=== PATIENT | female | born 1930 | race Caucasian/White ===

== ENCOUNTER 2019-07-03 14:07 | Inpatient (IN) ==
--- OUTSIDE RECORDS SUMMARY | 2019-07-03 14:11 | External Medical Summary | Continuity of Care Document ---
:1930 Author Name Elicia Harris Address Unavailable Unavailable , Care Team Providers Name Role Phone Zelda Harris Unavailable [email or web address], [email or web address] Unavailable Unavailable Problems Active medical history not documented Allergies and Adverse Reactions Allergy history not documented Medications Medications not documented Procedures Procedures not documented Immunizations Immunizations not documented Plan of Treatment Planned Observations Planned Goals not documented Results No Known Results Results not documented
[2019-07-03] MEDS ORDERED: DIPHTHERIA/TETANUS/PERTUSSIS 0.5 ML SYR/VIAL IM ONE (14:48)
--- NOTE | 2019-07-03 15:29 | XRay Report ---
XR hip RT 2V w pelvis CLINICAL HISTORY: fall, pain trauma. Pain. COMPARISON: None. DISCUSSION: The bones and joint spaces appear intact. There is no evidence of fracture, dislocation o r bony disease. Generalized degenerative change of the hips bilaterally. IMPRESSION: No acute process. Degenerative change. The above report was generated using voice recognition software. It may contain grammatical, syntax or spelling errors. Electronically signed by: Curtis Ruiz M.D. 07/03/2019 3:28 PM
[2019-07-03 15:35] LABS: Hematocrit (blood only) 38.5 % (37-47); Hemoglobin 12.4 g/dL (12.0-16.0); Mean Corpuscular Hemoglobin 28.5 pg (25-34); Mean Corpuscular Hgb Conc 32.2 g/dL (32-36); Mean Corpuscular Volume 88.5 fL (80-100); Platelet Count 334 K/uL (130-400); RDW Coefficient of Variation 15.1 % (11.5-14.5); RDW Standard Deviation 48.9 fL (36.4-46.3); Red Blood Count 4.35 M/uL (4.2-5.4); White Blood Count 27.06 K/uL (4.8-10.8)
--- NOTE | 2019-07-03 15:37 | Emergency Department Note ---
Entered by Stephanie Figueroa acting as a scribe for History of Present Illness General Chief complaint: Fall Time Seen by Provider: 07/03/19 14:41 Source: patient and family () Mode of arrival: EMS Limitations: no limitations History of Present Illness Provider complaint: Fall Onset (ago): hour(s) (around 1200 today) Location: head and hip (right) Pain Consistency: + other (episode) Maximum Pain Intensity: 8 Quality: + other (fall) Associated symptoms: + other (Additional symptoms: right hip pain, left calf skin tear. Denies: dizziness); no syncope The patient is an 88 year old female with a history of a knee replacement, cardiac catheterization, hysterectomy, anemia of chronic disease, hypertension, dyslipidemia, type II diabetes, GERD, CAD, migraines, and renal cyst who presents to the Emergency Room with complaints of an episode of a fall occurring around 1200 today. The patient reports that she was moving a milk jug to the fridge in her kitchen when she stepped across herself and lost her balance. She states that she thinks her shoe got caught and denies feeling dizzy at this time. She notes that she hit the right side of her head during her fall and fell onto her right side. She reports no syncope. The patient currently complains of right hip pain, as well as a skin tear to the back of her left calf. Her notes that the patient was wearing pants during the fall. The patient states that she was able to stand up after the fall but that doing so caused pain. She mentions that she took Tylenol for her pain prior to arrival. Prior to this fall, the patient explains that she had no symptoms and complaints. She notes th at she does not take any blood thinners. Home Medications Home Medications Medication Instructions Recorded Confirmed Type isosorbide dinitrate 10 mg PO BID 08/15/18 07/03/19 History metoprolol tartrate 25 mg PO BID 08/15/18 07/03/19 History nitroglycerin 0.4 mg SUBLINGUAL DIRECTED PRN 08/15/18 07/03/19 History simvastatin 20 mg PO HS 08/15/18 07/03/19 History zolpidem 5 mg PO HS PRN 08/15/18 07/03/19 History amlodipine 2.5 mg PO DAILY 07/03/19 07/03/19 History aspirin 81 mg PO MOWEFR@2100 07/03/19 07/03/19 History cholecalciferol (vitamin D3) 400 unit PO DAILY 07/03/19 07/03/19 History [Vitamin D3] cyanocobalamin (vitamin B-12) 500 mcg SUBLINGUAL DAILY 07/03/19 07/03/19 History valacyclovir [Valtrex] 1,000 mg PO UD 07/03/19 07/03/19 History vitamins A,C,[id number] 1 tab PO BID 07/03/19 07/03/19 History [PreserVision AREDS] Allergies Allergy/AdvReac Type Severity Reaction Status Date / Time sulfamethoxazole Allergy Intermediate Rash Verified 08/15/18 21:51 [From Bactrim] trimethoprim [From Bactrim] Allergy Intermediate Rash Verified 08/15/18 21:51 losartan Allergy Mild Fatigue Verified 08/15/18 21:51 erythromycin base AdvReac Mild NAUSEA Verified 08/15/18 21:51 Past Med/Surg History Medical History History of hysterectomy (Resolved) Anemia of chronic disease (Chronic) HTN (hypertension) (Chronic) Dyslipidemia (Chronic) Diabetes mellitus, type II (Chronic) CKD (chronic kidney disease), stage III (Chronic) GERD (gastroesophageal reflux disease) (Chronic) Pernicious anemia (Chronic) CAD (coronary artery disease) (Chronic) Migraine (Chronic) Knee joint replacement status (Resolved) Renal cyst (Chronic) Wears hearing aid (Chronic) Hypertension (Chronic) Fall (Inactive) Multiple rib fractures (Inactive) Surgical History Hx of tonsillectomy (Resolved) S/P cardiac cath (Chronic) History of knee replacement (Chronic) Family History Other Coronary heart disease Social History Preferred Language: [place] Communication Ability: Effective Hearing Ability: Use of Hearing Aid Care Transition Mgr Required: No Beliefs That Will Affect Care: None marital status: Current Living Situation: Spouse current occupational status: retired Other Information That Helps Us Care for You: No Feels Safe at Home: Yes Safety Concerns: Feels Safe At This Time Smoking Status: Never smoker Second Hand Exposure: No ; Hx Alcohol Use: Yes Alcohol type: wine Alcohol Intake Frequency: Rarely Hx Substance Use: No Review of Systems See HPI for pertinent positives & negatives. and A total of 10 systems reviewed and were otherwise negative Physical Exam Vital Signs Vital Signs - 24 hr 07/03/19 14:14 07/03/19 14:17 07/03/19 14:18 Temperature 36.5 C Temperature Source Oral Sepsis Recent Fever Within 48 Hours No Sepsis New/Unexplained Change in Mental Status No Sepsis Action Taken by Nursing No Action Required Pulse Rate 72 72 76 Pulse Rate [Left Finger] Pulse Rate from SpO2 Sensor 72 72 Respiratory Rate 14 20 17 Respiratory Effort / Characteristics Non-Labored Respiratory Depth Normal Respiratory Pattern Regular Blood Pressure 146/74 H 146/74 H Blood Pressure [Right Arm] Blood Pressure Mean 98 98 Blood Pressure Mean [Right Arm] Blood Pressure Position [Right Arm] Pulse Oximetry 94 95 95 Oxygen Delivery Method Room Air 07/03/19 14:30 07/03/19 15:00 07/03/19 15:30 Temperature Temperature Source Sepsis Recent Fever Within 48 Hours Sepsis New/Unexplained Change in Mental Status Sepsis Action Taken by Nursing Pulse Rate 70 76 78 Pulse Rate [Left Finger] Pulse Rate from SpO2 Sensor 71 76 78 Respiratory Rate 18 19 17 Respiratory Effort / Characteristics Respiratory Depth Respiratory Pattern Blood Pressure 128/68 Blood Pressure [Right Arm] Blood Pressure Mean 88 Blood Pressure Mean [Right Arm] Blood Pressure Position [Right Arm] Pulse Oximetry 93 92 94 Oxygen Delivery Method 07/03/19 16:14 07/03/19 16:15 07/03/19 16:17 Temperature Temperature Source Sepsis Recent Fever Within 48 Hours Sepsis New/Unexplained Change in Mental Status Sepsis Action Taken by Nursing Pulse Rate 85 82 Pulse Rate [Left Finger] 82 Pulse Rate from SpO2 Sensor 85 82 Respiratory Rate 13 23 Respiratory Effort / Characteristics Respiratory Depth Respiratory Pattern Blood Pressure 151/82 H Blood Pressure [Right Arm] 151/82 H Blood Pressure Mean 105 Blood Pressure Mean [Right Arm] 105 Blood Pressure Position [Right Arm] Lying Pulse Oximetry 93 92 93 Oxygen Delivery Method Room Air 07/03/19 16:30 07/03/19 17:00 Temperature Temperature Source Sepsis Recent Fever Within 48 Hours Sepsis New/Unexplained Change in Mental Status Sepsis Action Taken by Nursing Pulse Rate 83 86 Pulse Rate [Left Finger] Pulse Rate from SpO2 Sensor 83 86 Respiratory Rate 19 15 Respiratory Effort / Characteristics Respiratory Depth Respiratory Pattern Blood Pressure Blood Pressure [Right Arm] Blood Pressure Mean Blood Pressure Mean [Right Arm] Blood Pressure Position [Right Arm] Pulse Oximetry 93 94 Oxygen Delivery Method GENERAL: Patient is in no acute distress. HEENT: 2 cm hematoma to the right posterior scalp. No laceration requiring repair. Mucous membranes are moist. No facial contusion. NECK: No stridor, no adenopathy, no meningismus, trachea is midline. Nontender cervical spine. LUNGS: Clear to auscultation bilaterally, no wheeze, no rhonchi, breath sounds equal. HEART: Without murmurs gallops or rubs, regular rate and rhythm. ABDOMEN: Soft, nontender, bowel sounds positive, no hernias, no peritonitis. EXTREMITIES: 4 cm skin tear to the left posterior calf, no bleeding, no need for suturing. No bony tenderness in this area. Pain to move the right hip. No right lower extremity deformity. Strong right distal pedal pulses. Palpation around the right hip produces no pain. NEUROLOGIC: Oriented x 3, no acute motor or sensory deficits, no focal weakness. SKIN: No rash, no jaundice, no diaphoresis. Course 1441: The patient was evaluated in room D2B, and a complete history and physical examination were performed. 1645: On reevaluation, the patient is resting. I discussed the results and findings with her and her family. The patient verbalized agreement of the treatment plan. 1647: I reviewed the patient's case with Patricia Angel PA-C. Dr. Shepherd will evaluate the patient for further management and care. Consultations Consultation #1: I reviewed the patient's case with Patricia Angel PA-C. Dr. Shepherd will evaluate the patient for further management and care. Time: 16:47 Administered Medications Acetaminophen (Tylenol) 1,000 mg PO Q8H [facility] Stop: 08/02/19 18:59 Last Admin: 07/03/19 19:15 Dose: 1,000 mg Documented by: [id number] Aspirin (Ecotrin Ectab) 81 mg PO MOWEFR@2100 [facility] Stop: 08/02/19 20:59 Last Admin: 07/03/19 20:17 Dose: 81 mg Documented by: [id number] Isosorbide Dinitrate (Isordil) 10 mg PO BID@0900,1700 [facility] Stop: 08/02/19 18:59 Last Admin: 07/03/19 20:17 Dose: 10 mg Documented by: [id number] Metoprolol Tartrate (Lopressor) 25 mg PO BID [facility] Stop: 08/02/19 20:59 Last Admin: 07/03/19 20:18 Dose: 25 mg Documented by: [id number] Simvastatin (Zocor) 20 mg PO HS [facility] Stop: 08/02/19 20:59 Last Admin: 07/03/19 20:18 Dose: 20 mg Documented by: [id number] Zolpidem Tartrate (Ambien) 5 mg PO HS PRN PRN Reason: Sleep Stop: 08/02/19 17:52 Last Admin: 07/03/19 22:17 Dose: 5 mg Documented by: [id number] Discontinued Medications Diphtheria/Pertussis/Tetanus Vacc (Adacel) 0.5 ml IM .ONCE ONE Stop: 07/03/19 14:49 Last Admin: 07/03/19 15:30 Dose: 0.5 ml Documented by: [id number] Sodium Chloride (Nss 1000ml) 500 mls @ 999 mls/hr IV .Q31M ONE Stop: 07/03/19 16:32 Last Infusion: 07/03/19 16:52 Dose: 0 mls/hr Documented by: [id number] Admin: 07/03/19 16:19 Dose: 999 mls/hr Documented by: [id number] Ketorolac Tromethamine (Toradol) 15 mg IV NOW STA Stop: 07/03/19 15:45 Last Admin: 07/03/19 15:49 Dose: 15 mg Documented by: [id number] Medical Decision Making Differential Diagnosis Differential diagnosis includes: intracranial bleeding, skull fracture, pelvic fracture, hip fracture, hip strain, hip contusion, hip dislocation. Medical Records Attestation: I reviewed the patient's medical records. Home Medications Current Medication List: was personally reviewed by me Laboratory Data Attestation: I reviewed the patient's lab results. Result diagrams: 07/03/19 15:17 07/03/19 15:17 Lab Results 07/03/19 07/03/19 07/03/19 Range/Units 15:17 15:17 17:03 WBC 27.06 H (4.8-10.8) K/uL RBC 4.35 (4.2-5.4) M/uL Hgb 12.4 (12.0-16.0) g/dL Hct 38.5 (37-47) % MCV 88.5 (80-100) fL MCH 28.5 (25-34) pg MCHC 32.2 (32-36) g/dL RDW Std Deviation 48.9 H (36.4-46.3) fL RDW Coeff of [place] 15.1 H (11.5-14.5) % Plt Count 334 (130-400) K/uL MPV 11.0 H (7.4-10.4) fL Sodium 137 (136-145) mmol/L Potassium 3.9 (3.5-5.1) mmol/L Chloride 106 (98-107) mmol/L Carbon Dioxide 24 (21-32) mmol/L Anion Gap 8.0 (3-11) BUN 19 H (7-18) mg/dl Creatinine 1.31 H (0.6-1.2) mg/dl Est Cr Clr Drug Dosing 23.9 ml/min Est GFR ( Amer) 42.0 Est GFR (Non-Af Amer) 36.3 BUN/Creatinine Ratio 14.7 (10-20) Glucose 110 H (70-99) mg/dl Calcium 9.5 (8.5-10.1) mg/dl Urine Color Yellow Urine Appearance Clear (Clear) Urine pH 7.0 (4.5-7.5) Ur Specific [place] 1.007 (1.000-1.030) Urine Protein Negative (Negative) Urine Glucose (UA) Negative (Negative) Urine Ketones Negative (Negative) Urine Blood Negative (Negative) Urine Nitrite Negative (Negative) Urine Bilirubin Negative (Negative) Urine Urobilinogen Negative (Negative) Ur Leukocyte Esterase Negative (Negative) Imaging Data Radiologist's Impression: Radiology results as stated below per my review and the radiologist's interpretation: XR hip RT 2V w pelvis CLINICAL HISTORY: fall, pain trauma. Pain. COMPARISON: None. DISCUSSION: The bones and joint spaces appear intact. There is no evidence of fracture, dislocation or bony disease. Generalized degenerative change of the hips bilaterally. IMPRESSION: No acute process. Degenerative change. The above report was generated using voice recognition software. It may contain grammatical, syntax or spelling errors. Electronically signed by: Curtis Ruiz M.D. 07/03/2019 3:[address] head/brain wo con CLINICAL HISTORY: Head pain status post trauma COMPARISON STUDY: No previous studies for comparison. TECHNIQUE: Axial CT of the brain is performed from the vertex to the skull base. IV contrast was not administered for this examination. A dose lowering technique was utilized adhering to the principles of ALARA. CT DOSE: 788.63 mGycm FINDINGS: No intra or extra-axial mass lesions are visualized. There is no CT evidence of acute cortical infarction. There is no evidence of midline shift. There is no acute hemorrhage. No calvarial fractures are visualized. There are extensive white matter hypodensities likely on a small vessel basis. 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 There is no evidence of pathologic ventricular dilatation. There is no evidence of acute sinusitis. There are multiple tentorial and falcine calcifications. IMPRESSION: No acute intracranial findings Electronically signed by: Deon Durham M.D. 07/03/2019 4:[address] hip RT wo con CT DOSE: CLINICAL HISTORY: Right hip pain status post trauma TECHNIQUE: Helical images were acquired in the transverse plane. Sagittal and coronal reformatted images were acquired. A dose lowering technique was utilized adhering to the principles of ALARA. COMPARISON STUDY: X-ray study dated 07/03/2019 FINDINGS: There is extensive sigmoid diverticulosis. There are extensive vascular calcifications. There is acute fracture of the right superior pubic ramus, extending to the symphysis pubis. Right symphysis pubis. There is no evidence of symphysis diastases. There is no evidence of SI joint diastases. No acute proximal femoral fractures are visualized. There are moderate osteoarthritic changes. IMPRESSION: 1. Acute fracture of the right superior pubic ramus with extension to the symphysis pubis 2. No evidence of proximal femoral fracture. No evidence of dislocation 3. 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 07/03/2019 4:19 PM Blood Pressure Blood Pressure Findings: Elevated blood pressure Blood Pressure Disposition: further management by hospitalist Head Trauma GCS Score: 15 MDM Narrative There is a significant leukocytosis at 27,000, the patient has a history of a higher white count although, this value is higher than baseline. No concerning anemia. The patient has a normal platelet count. There was some renal insufficiency present, no significant electrolyte abnormality requiring correction. Urinalysis did not show evidence for infection. Brain CT did not show any evidence for skull fracture or acute intracranial bleeding. Pelvis and right hip films showed no obvious pelvic or hip fracture. CT of the right hip does show a superior right ramus fracture. No hip fracture. The patient received IV Toradol for pain, she was given IV saline. She was given an Adacel booster IM because of the skin tear to the left calf. A left skin tear was cleansed and dressed. The patient is not able to ambulate because of pain. Certainly, the superior ramus fracture on the right explains her discomfort and would fit with her fall. I do think she will likely require rehab. I did speak with the patient about her findings. I spoke with case management. The on-call hospitalist was consulted. Impression & Plan Pelvic fracture, Head trauma, Fall, Leukocytosis Discharge Plan Visit Data *Final* Discharge Date/Time: 07/03/19 18:18 Chief Complaint: Fall ED Provider: Ang Mancini Discharge Problem: Pelvic fracture, Head trauma, Fall, Leukocytosis Patient Disposition: Admitted As Inpatient Discharge Instructions Interventions: ED Discharge Assessment Last Done: 07/03/19 18:18 The melitonibe's documentation has been prepared under my direction and personally reviewed by me in its entirety. I confirm that the note above accurately reflects all work, treatment, procedures, and medical decision making performed by me.
[2019-07-03] MEDS ORDERED: KETOROLAC TROMETHAMINE 15 MG/ML VIAL IV STA (15:44)
[2019-07-03 15:49] LABS: BUN Creatinine Ratio 14.7 (10-20); Calcium 9.5 mg/dl (8.5-10.1); Creatinine Clr Calc Pharmacy 23.9 ml/min; Est GFR (Non-African American) 36.3; Potassium 3.9 mmol/L (3.5-5.1)
[2019-07-03] MEDS ORDERED: SODIUM CHLORIDE 0.9% 1000ML 500 ML IV ONE (16:02)
--- NOTE | 2019-07-03 16:12 | CT Scan Report ---
CT head/brain wo con CLINICAL HISTORY: Head pain status post trauma COMPARISON STUDY: No previous studies for comparison. TECHNIQUE: Axial CT of the brain is performed from the vertex to the skull base. IV contrast was not administered for this examination. A dose lowering technique was utilized adhering to the principles of ALARA. CT DOSE: 788.63 mGycm FINDINGS: No intra or extra-axial mass lesions are visualized. There is no CT evidence of acute cortical infarc tion. There is no evidence of midline shift. There is no acute hemorrhage. No calvarial fractures ar e visualized. There are extensive white matter hypodensities likely on a small vessel basis. There is an old lacuna r infarct within the right thalamus. There is no evidence of pathologic ventricular dilatation. There is no evidence of acute sinusitis. There are multiple tentorial and falcine calcifications. IMPRESSION: No acute intracranial findings Electronically signed by: Deon Durham M.D. 07/03/2019 4:10 PM
--- NOTE | 2019-07-03 16:21 | CT Scan Report ---
CT hip RT wo con CT DOSE: CLINICAL HISTORY: Right hip pain status post trauma TECHNIQUE: Helical images were acquired in the transverse plane. Sagittal and coronal reformatted catarino ges were acquired. A dose lowering technique was utilized adhering to the principles of ALARA. COMPARISON STUDY: X-ray study dated 07/03/2019 FINDINGS: There is extensive sigmoid diverticulosis. There are extensive vascular calcifications. There is acute fracture of the right superior pubic ramus, extending to the symphysis pubis. Right sy mphysis pubis. There is no evidence of symphysis diastases. There is no evidence of SI joint diastase s. No acute proximal femoral fractures are visualized. There are moderate osteoarthritic changes. IMPRESSION: 1. Acute fracture of the right superior pubic ramus with extension to the symphysis pubis 2. No evidence of proximal femoral fracture. No evidence of dislocation 3. 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 07/03/2019 4:19 PM
[2019-07-03 17:14] LABS: Appearance Urine Clear (Clear); Bilirubin Urine Negative (Negative); Blood Urine Negative (Negative); Color Urine Yellow; Glucose Urine UA Negative (Negative); Ketones Urine Negative (Negative); Leukocyte Esterase Urine Negative (Negative); Nitrite Urine Negative (Negative); Protein Urine Negative (Negative); Specific Gravity Urine 1.007 (1.000-1.030); Urobilinogen Urine Negative (Negative)
--- NOTE | 2019-07-03 17:20 | History & Physical Report ---
Date of Service July 03, 2019 Assessment & Plan (1) Fracture of superior pubic ramus: This is a 88yo F with a PMH of CLL, HTN, HLD, CAD (s/p stent), pernicious anemia, CKD III and other medical problems listed below who presents after a fall at home and was found to have acute fracture of the right superior pubic ramus with extension to the symphysis pubis. -Mechanical fall at home - Hemoglobin is 12.4. Urinalysis without abnormality - CT head without acute intracranial abnormality. CT hip with acute fracture of the right superior pubic ramus with extension to the symphysis pubis -Discussed with orthopedics. 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 No evidence of infection. Monitor -Follows with Dr. Ruiz. Has a favorable diagnosis at this point so planning to watch and wait unless patient becomes symptomatic -Due for next appointment later June (3) CKD (chronic kidney disease), stage III: Baseline creatinine around 1.1. Currently 1.31 -Monitor with daily BMP (4) CAD (coronary artery disease): S/p stent placement -Continue isosorbide dinitrate, lopressor, aspirin, statin (5) Diabetes mellitus, type II: Glipizide was discontinued by PCP -Carb consistent diet (6) Dyslipidemia: Continue statin (7) Pernicious anemia: Continue vitamin B12 DVT Ppx: SCDs for now Code status: FULL per discussion with patient PCP: George Dispo: Admitted to [facility]. Discharge planning for tomorrow for possible placement. Patient seen in collaboration with Dr. Shepherd. Please see addendum. History of Present Illness Chief Complaint: fall, R hip pain Primary Care Provider: Dena Vazquez MD This is a 88yo F with a PMH of CLL, HTN, HLD, CAD (s/p stent), pernicious anemia, CKD III and other medical problems listed below who presents after a fall at home. Patient states she was reaching into her fridge to grab the milk jug when her shoe got caught and she lost her balance, landing on her right side. Patient endorses hitting her head but denies any preceding lightheadedness or dizziness. No loss of consciousness. Did have immediate right-sided hip pain as well as a skin tear on left calf. Was brought to ED for further evaluation. Patient found to be hemodynamically stable. Hemoglobin is 12.4. Urinalysis without abnormality. CT head without acute intracranial abnormality. CT hip with acute fracture of the right superior pubic ramus with extension to the symphysis pubis. No evidence of proximal femoral fracture. No evidence of dislocation. 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 Allergies Allergy/AdvReac Type Severity Reaction Status Date / Time sulfamethoxazole Allergy Intermediate Rash Verified 08/15/18 21:51 [From Bactrim] trimethoprim [From Bactrim] Allergy Intermediate Rash Verified 08/15/18 21:51 losartan Allergy Mild Fatigue Verified 08/15/18 21:51 erythromycin base AdvReac Mild NAUSEA Verified 08/15/18 21:51 Home Medications Home Medications Medication Instructions Recorded Confirmed Type isosorbide dinitrate 10 mg PO BID 08/15/18 07/03/19 History metoprolol tartrate 25 mg PO BID 08/15/18 07/03/19 History nitroglycerin 0.4 mg SUBLINGUAL DIRECTED PRN 08/15/18 07/03/19 History simvastatin 20 mg PO HS 08/15/18 07/03/19 History zolpidem 5 mg PO HS PRN 08/15/18 07/03/19 History amlodipine 2.5 mg PO DAILY 07/03/19 07/03/19 History aspirin 81 mg PO MOWEFR@2100 07/03/19 07/03/19 History cholecalciferol (vitamin D3) 400 unit PO DAILY 07/03/19 07/03/19 History [Vitamin D3] cyanocobalamin (vitamin B-12) 500 mcg SUBLINGUAL DAILY 07/03/19 07/03/19 History valacyclovir [Valtrex] 1,000 mg PO UD 07/03/19 07/03/19 History vitamins A,C,O-nmrz-qbuycb 1 tab PO BID 07/03/19 07/03/19 History [PreserVision AREDS] Past Med/Surg History Medical History History of hysterectomy (Resolved) Anemia of chronic disease (Chronic) HTN (hypertension) (Chronic) Dyslipidemia (Chronic) Diabetes mellitus, type II (Chronic) CKD (chronic kidney disease), stage III (Chronic) GERD (gastroesophageal reflux disease) (Chronic) Pernicious anemia (Chronic) CAD (coronary artery disease) (Chronic) Migraine (Chronic) Knee joint replacement status (Resolved) Renal cyst (Chronic) Wears hearing aid (Chronic) Hypertension (Chronic) Fall (Inactive) Multiple rib fractures (Inactive) Surgical History Hx of tonsillectomy (Resolved) S/P cardiac cath (Chronic) History of knee replacement (Chronic) Family History Other Coronary heart disease Social History Preferred Language: Thai Communication Ability: Effective Hearing Ability: Use of Hearing Aid Superintendent Track Required: No Beliefs That Will Affect Care: None marital status: Current Living Situation: Spouse current occupational status: retired Other Information That Helps Us Care for You: No Feels Safe at Home: Yes Safety Concerns: Feels Safe At This Time Smoking Status: Never smoker Second Hand Exposure: No ; Hx Alcohol Use: Yes Alcohol type: wine Alcohol Intake Frequency: Rarely Hx Substance Use: No Review of Systems Review of Systems: At least ten systems reviewed and negative except as noted in the HPI. Physical Exam Physical Exam: General Appearance: WD/WN, vitals as above, NAD, elderly woman sitting up in bed, pleasant, conversing easily Head: normocephalic, atraumatic Eyes: normal inspection, PERRL, conjunctivae normal, anicteric sclerae ENT: hard of hearing, external ear and nose normal, oropharynx normal Neck: trachea midline, no thyromegaly normal visual inspection Respiratory: lungs clear to auscultation, no wheeze, rales, rhonchi. Normal insp/exp effort, no accessory muscle use Cardiovascular: regular rate and rhythm, systolic ejection murmur, normal peripheral pulses, no BLE edema. Vessels: no JVD or carotid bruit Chest: normal inspection of chest Abdomen/GI: normal bowel sounds, soft, nontender, no hepatosplenomegaly Extremities/Musculoskelatal: no cyanosis or clubbing, extremities motor strength 5/5. + L skin tear wrapped on anterior harris. TTP of R pelvis and lateral thigh but no bruising or trauma noted. Distal pulses intact. Neurologic: PERRL, EOMI, accommodation nl, no face palsy, no dysarthria CN's II-XI intact bilaterally and moves all extremities Psychiatric: A+Ox3, euthymic affect Skin: no rashes, normal color, warm/dry Results & Data Vital Signs (Past 12 Hours) Vital Signs Temp Pulse Pulse Resp BP BP Pulse Ox 07/03/19 16:17 82 151/82 H 93 07/03/19 14:17 36.5 C 72 20 146/74 H 95 Laboratory Results Short CBC 07/03/19 07/03/19 07/03/19 Range/Units 15:17 15:17 17:03 WBC 27.06 H (4.8-10.8) K/uL RBC 4.35 (4.2-5.4) M/uL Hgb 12.4 (12.0-16.0) g/dL Hct 38.5 (37-47) % MCV 88.5 (80-100) fL MCH 28.5 (25-34) pg MCHC 32.2 (32-36) g/dL RDW Std Deviation 48.9 H (36.4-46.3) fL RDW Coeff of [place] 15.1 H (11.5-14.5) % Plt Count 334 (130-400) K/uL MPV 11.0 H (7.4-10.4) fL Sodium 137 (136-145) mmol/L Potassium 3.9 (3.5-5.1) mmol/L Chloride 106 (98-107) mmol/L Carbon Dioxide 24 (21-32) mmol/L Anion Gap 8.0 (3-11) BUN 19 H (7-18) mg/dl Creatinine 1.31 H (0.6-1.2) mg/dl Est Cr Clr Drug Dosing 23.9 ml/min Est GFR ( Amer) 42.0 Est GFR (Non-Af Amer) 36.3 BUN/Creatinine Ratio 14.7 (10-20) Glucose 110 H (70-99) mg/dl Calcium 9.5 (8.5-10.1) mg/dl Urine Color Yellow Urine Appearance Clear (Clear) Urine pH 7.0 (4.5-7.5) Ur Specific [place] 1.007 (1.000-1.030) Urine Protein Negative (Negative) Urine Glucose (UA) Negative (Negative) Urine Ketones Negative (Negative) Urine Blood Negative (Negative) Urine Nitrite Negative (Negative) Urine Bilirubin Negative (Negative) Urine Urobilinogen Negative (Negative) Ur Leukocyte Esterase Negative (Negative) BMP 07/03/19 15:17 Sodium 137 Potassium 3.9 Chloride 106 Carbon Dioxide 24 BUN 19 H Creatinine 1.31 H Glucose 110 H Calcium 9.5 Urine 07/03/19 Range/Units 17:03 Urine Color Yellow Urine Appearance Clear (Clear) Urine pH 7.0 (4.5-7.5) Ur Specific [place] 1.007 (1.000-1.030) Urine Protein Negative (Negative) Urine Glucose (UA) Negative (Negative) Diagnostic Findings CT head: IMPRESSION: No acute intracranial findings Hip/pelvis XR: IMPRESSION: No acute process. Degenerative change. Hip CT: IMPRESSION: 1. Acute fracture of the right superior pubic ramus with extension to the symphysis pubis 2. No evidence of proximal femoral fracture. No evidence of dislocation 3. Moderate osteoarthritic changes within the right hip Code Status & VTE Plan VTE Prophylaxis Plan VTE Prophylaxis will be ordered: Yes Supervising Physician Co-Signing Physician Notes Attending Addendum: care coordinated with CLARISA Cameron please refer to her notes for full details, I agree with her notes patient seen and examined, records reviewed by myself as well on exam, patient seen resting in bed, comfortable pain adequately controlled no other symptoms VS noted and reviewed oriented x3, not in distress, speaks in sentences with no effort nor accessory muscle use normal rate, regular rhythm, no murmurs clear breath sounds bilaterally non distended, soft, nontender no bipedal edema, erythema, warmth (+) skin tear left lower leg- no active bleeding noted no neuro deficits WBC 27.06 Hg 12.4 Crea 1.31 ASSESSMENT AND PLAN PUBIC RAMUS FRACTURE pain control, Ortho consult, PT/OT eval CLL WBC 27 in the setting of trauma monitor CKD 3 crea mildly elevated 1.3 monitor other diagnoses and plan of care as per CLARISA Cameron's notes Israel Shepherd MD
[2019-07-03] MEDS ORDERED: ACETAMINOPHEN 500 MG TAB PO PRN (17:48)
[2019-07-03] MEDS ORDERED: NITROGLYCERIN SL 0.4 MG/TAB TAB SL PRN (17:53)
[2019-07-03] MEDS ORDERED: ZOLPIDEM TARTRATE 5 MG TAB PO PRN (17:53)
[2019-07-03] MEDS ORDERED: TRAMADOL HCL 50 MG TABLET PO PRN (18:30)
[2019-07-03] MEDS ORDERED: POLYETHYLENE (MIRALAX) 17 GM PACK PO PRN (18:33)
[2019-07-03] MEDS: ACETAMINOPHEN 500 MG TAB PO SCH (19:15)
[2019-07-03] MEDS: ISOSORBIDE DINITRATE 10 MG TAB PO SCH (20:17)
[2019-07-03] MEDS: ASPIRIN 81 MG ECTAB PO SCH (20:17)
[2019-07-03] MEDS: SIMVASTATIN 20 MG TAB PO SCH (20:18)
[2019-07-03] MEDS ORDERED: METOPROLOL TARTRATE 25 MG TAB PO SCH (21:00)
[2019-07-03] MEDS ORDERED: METOPROLOL TARTRATE 25 MG TAB PO STA (22:29)
[2019-07-03] MEDS ORDERED: POTASSIUM CHLORIDE 20 MEQ TABCR PO STA (22:31)
--- NOTE | 2019-07-03 22:51 | Hospitalist Progress Note ---
Date of Service July 03, 2019 Subjective Around 10 PM, RN made me aware of transient A. fib/a flutter on the monitor, cardiac rate low 100s as per RN. Patient asymptomatic. AP PAF/Aflutter ? Secondary to uncontrolled blood pressure No prior diagnosis on review of outpatient records. Increase maintenance beta-dudley dose for now from 25 to 50 mg twice daily. Cardiology consult in a.m. RE PAF/AFl. (Patient noted GMG.) Will relay to AM provider. Results & Data Vital Signs (Past 12 Hours) Vital Signs Temp Pulse Pulse Resp BP BP Pulse Ox 07/03/19 19:43 37.0 C 84 16 163/97 H 91 07/03/19 18:38 85 07/03/19 18:36 37.0 C 84 18 163/97 H 91 07/03/19 18:12 89 20 154/87 H 98 07/03/19 17:30 20 93 07/03/19 17:00 86 15 94 07/03/19 16:30 83 19 93 07/03/19 16:17 82 151/82 H 93 07/03/19 16:15 82 23 151/82 H 92 07/03/19 16:14 85 13 93 07/03/19 15:30 78 17 94 07/03/19 15:00 76 19 92 07/03/19 14:30 70 18 128/68 93 07/03/19 14:18 76 17 95 07/03/19 14:17 36.5 C 72 20 146/74 H 95 07/03/19 14:14 72 14 146/74 H 94
--- NOTE | 2019-07-03 22:55 | XRay Report ---
XR chest 1V portable CLINICAL HISTORY: 88 years-old Female presenting with arf. TECHNIQUE: Portable upright AP view of the chest was obtained. COMPARISON: 08/15/2018. FINDINGS: Atherosclerosis of the aortic arch. Cardiac silhouette enlarged. Coarsened lung markings. Mildly low lung volumes. No new focal opacity. No large effusion or pneumothorax. Degenerative changes of the th oracic spine. Previously noted right rib fractures not as apparent on the current exam. Osteopenia león spected. Upper abdomen normal. IMPRESSION: 1. Cardiomegaly. 2. Coarsened lung markings could relate to underlying chronic lung disease or mild congestive change . Electronically signed by: Tomás Boone M.D. 07/03/2019 10:54 PM
[2019-07-03 23:28] LABS: Thyroid Stimulating Hormone 0.711 uIu/ml (0.300-4.500)
[2019-07-03] MEDS ORDERED: MAGNESIUM SULFATE / D5W 1 GM/100 ML BAG IV ONE (23:30)
[2019-07-04] MEDS: HYDROCODONE/ACETAMOPHEN 5/325MG TAB PO PRN ×2 (02:41→19:47)
[2019-07-04] MEDS: ACETAMINOPHEN 500 MG TAB PO SCH ×3 (03:20→19:43)
[2019-07-04] MEDS: AMLODIPINE BESYLATE 5 MG TAB PO SCH (06:13)
[2019-07-04 06:40] LABS: Hematocrit (blood only) 37.6 % (37-47); Hemoglobin 12.2 g/dL (12.0-16.0); Mean Corpuscular Hemoglobin 28.6 pg (25-34); Mean Corpuscular Hgb Conc 32.4 g/dL (32-36); Mean Corpuscular Volume 88.1 fL (80-100); Mean Platelet Volume 10.9 fL (7.4-10.4); Platelet Count 330 K/uL (130-400); RDW Coefficient of Variation 15.2 % (11.5-14.5); RDW Standard Deviation 48.5 fL (36.4-46.3); Red Blood Count 4.27 M/uL (4.2-5.4); White Blood Count 22.55 K/uL (4.8-10.8)
[2019-07-04 06:48] LABS: Partial Thromboplastin Time 25.9 Seconds (21.0-31.0)
[2019-07-04 07:09] LABS: Creatinine Clr Calc Pharmacy 34.2 ml/min; Est GFR (African American) 50.3; Est GFR (Non-African American) 43.4; Potassium 4.1 mmol/L (3.5-5.1)
[2019-07-04] MEDS: CEROVITE ADV FORMULA TAB PO SCH (07:33)
[2019-07-04] MEDS: ISOSORBIDE DINITRATE 10 MG TAB PO SCH ×2 (07:33→17:05)
[2019-07-04] MEDS: CHOLECALCIFEROL (VITAMIN D) 400 UNITS TABLET PO SCH (07:33)
[2019-07-04] MEDS: CYANOCOBALAMIN 500 MCG TABLET (VITAMIN B-12) PO SCH (07:33)
[2019-07-04] MEDS: TRAMADOL HCL 50 MG TABLET PO PRN (08:12)
[2019-07-04] MEDS ORDERED: METOPROLOL TARTRATE 50 MG TAB PO SCH (09:00)
[2019-07-04] MEDS ORDERED: AMLODIPINE BESYLATE 5 MG TAB PO SCH (09:00)
--- NOTE | 2019-07-04 09:32 | Cardiology Consultation ---
Date of Consultation July 04, 2019 Assessment & Plan (1) Paroxysmal atrial fibrillation: Patient had transient episode of paroxysmal atrial fibrillation after hospitalization last evening. Findings incidentally noted on monitor with spontaneous resolve asymptomatic from patient description. She has no prior history of atrial arrhythmias Echocardiogram demonstrates atrial enlargement which would lead us at high risk for recurrence Discussed findings in detail with the patient Plan: We will increase metoprolol to 3 times daily dosing for hypertension and rhythm control. Discussed initially anticoagulation though patient would be at elevated risk given recent fall and past falls. Patient currently in sinus rhythm Will recommend maintaining telemetry We will follow during hospitalization with further recommendations as clinical course proceeds Mechanical falls appear to be recurrent issue though. Occurred during daytime activities. May need to discuss sleep medication (2) CAD (coronary artery disease): No recent angina or cardiac complaints (3) HTN (hypertension): As above we will continue usual outpatient medications with increase in beta-dudley therapy (4) Fracture of superior pubic ramus: Per records initial plan appears to be conservative management however orthopedic evaluation pending. Patient has no contraindications to surgical intervention if indicated (5) CLL (chronic lymphocytic leukemia): History of Present Illness Reason for Consultation: Pelvic fracture, paroxysmal atrial fibrillation, mechanical fall Requesting Physician: Dr. Torres Attending Physician: Angelo Carrera MD History of Present Illness Patient is an 88-year-old female with ongoing issues 1.Atherosclerotic coronary disease with remote inferior posterior myocardial infarction 2001, treated with stent to the left circumflex for single-vessel disease. 2.Stable class I angina pectoris. 3.Hypertension. 4.Hyperlipidemia. 5. Chronic lymphocytic leukemia 6. Aortic valve disease with very mild aortic stenosis Patient presents this admission having suffered a mechanical fall tripping in her kitchen with resultant pelvic fracture. Patient notes did hit her head as well as suffered a small skin tear. Has had falls in the recent past. No syncope or near syncope. No sense of tachypalpitations, orthopnea, worsening peripheral edema. Did have a recent upper respiratory infection which has resolved. No unexplained fevers or infections. No bleeding difficulties melena hematochezia dysuria hematuria. Appetite weighted been generally stable Has chronic sleep disturbance which she uses zolpidem. No nocturnal issues Patient last evening while on telemetry had transient atrial fibrillation with spontaneous return to sinus rhythm. She remains in sinus rhythm this morning and denies any cardiac complaints. Patient not aware of arrhythmias currently or in past Allergies Allergy/AdvReac Type Severity Reaction Status Date / Time sulfamethoxazole Allergy Intermediate Rash Verified 08/15/18 21:51 [From Bactrim] trimethoprim [From Bactrim] Allergy Intermediate Rash Verified 08/15/18 21:51 losartan Allergy Mild Fatigue Verified 08/15/18 21:51 erythromycin base AdvReac Mild NAUSEA Verified 08/15/18 21:51 Home Medications Home Medications Medication Instructions Recorded Confirmed Type isosorbide dinitrate 10 mg PO BID 08/15/18 07/03/19 History metoprolol tartrate 25 mg PO BID 08/15/18 07/03/19 History nitroglycerin 0.4 mg SUBLINGUAL DIRECTED PRN 08/15/18 07/03/19 History simvastatin 20 mg PO HS 08/15/18 07/03/19 History zolpidem 5 mg PO HS PRN 08/15/18 07/03/19 History amlodipine 2.5 mg PO DAILY 07/03/19 07/03/19 History aspirin 81 mg PO MOWEFR@2100 07/03/19 07/03/19 History cholecalciferol (vitamin D3) 400 unit PO DAILY 07/03/19 07/03/19 History [Vitamin D3] cyanocobalamin (vitamin B-12) 500 mcg SUBLINGUAL DAILY 07/03/19 07/03/19 History valacyclovir [Valtrex] 1,000 mg PO UD 07/03/19 07/03/19 History vitamins A,C,Z-ytdk-ffkyps 1 tab PO BID 07/03/19 07/03/19 History [PreserVision AREDS] Patient History Medical History History of hysterectomy (Resolved) Anemia of chronic disease (Chronic) HTN (hypertension) (Chronic) Dyslipidemia (Chronic) Diabetes mellitus, type II (Chronic) CKD (chronic kidney disease), stage III (Chronic) GERD (gastroesophageal reflux disease) (Chronic) Pernicious anemia (Chronic) CAD (coronary artery disease) (Chronic) Migraine (Chronic) Knee joint replacement status (Resolved) Renal cyst (Chronic) Wears hearing aid (Chronic) Hypertension (Chronic) Fall (Inactive) Multiple rib fractures (Inactive) Surgical History Hx of tonsillectomy (Resolved) S/P cardiac cath (Chronic) History of knee replacement (Chronic) Family History Other Coronary heart disease Social History Preferred Language: Zambian Communication Ability: Effective Hearing Ability: Use of Hearing Aid Ems Manager Required: No Beliefs That Will Affect Care: None marital status: Current Living Situation: Spouse current occupational status: retired Other Information That Helps Us Care for You: No Feels Safe at Home: Yes Safety Concerns: Feels Safe At This Time Smoking Status: Never smoker Second Hand Exposure: No ; Hx Alcohol Use: Yes Alcohol type: wine Alcohol Intake Frequency: Rarely Hx Substance Use: No Review of Systems Review of Systems: All systems reviewed & are unremarkable except as noted in HPI & below Physical Exam Constitutional: WD/WN, vitals as above + obese Eyes: PERRL, conjunctivae normal, anicteric sclerae ENMT: external ear and nose normal, oropharynx normal Neck: trachea midline, no thyromegaly Respiratory: normal respiratory effort, lungs clear to auscultation Cardiovascular: Rate/Rhythm: regular rate and regular rhythm Heart Sounds: normal S1, normal S2 and + murmur (Grade 1-2 or 6 systolic, no diastolic); no gallop Palpation: normal PMI Vessels: normal carotid upstroke and radial pulses present; no JVD and no carotid bruit Extremities: no edema Gastrointestinal (Abdomen): normal bowel sounds, soft, nontender, no hepatosplenomegaly Musculoskeletal: Extremities: + chronic stasis changes Tenderness of right hip and pelvic area, pain with movement of the right leg Skin: no rashes, warm and dry Neurologic: PERRL, EOMI, accommodation nl, no face palsy, no dysarthria Psychiatric: A+Ox3, euthymic affect Results & Data Vital Signs (Past 12 Hours) Vital Signs Temp Pulse Pulse Resp BP BP Pulse Ox 07/04/19 08:00 70 07/04/19 07:17 36.7 C 75 18 165/72 H 166/74 H 92 07/04/19 06:13 156/73 H 07/04/19 05:00 37.0 C 73 18 153/65 H 93 07/04/19 00:41 101 H 07/03/19 23:38 36.7 C 78 19 121/74 95 Laboratory Results Laboratory Results - last 24 hr 07/03/19 07/03/19 07/03/19 15:17 15:17 17:03 WBC 27.06 H RBC 4.35 Hgb 12.4 Hct 38.5 MCV 88.5 MCH 28.5 MCHC 32.2 RDW Std Deviation 48.9 H RDW Coeff of [place] 15.1 H Plt Count 334 MPV 11.0 H APTT PTT Ratio Sodium 137 Potassium 3.9 Chloride 106 Carbon Dioxide 24 Anion Gap 8.0 BUN 19 H Creatinine 1.31 H Est Cr Clr Drug Dosing 23.9 Est GFR ( Amer) 42.0 Est GFR (Non-Af Amer) 36.3 BUN/Creatinine Ratio 14.7 Glucose 110 H Calcium 9.5 Magnesium 2.0 TSH 0.711 Urine Color Yellow Urine Appearance Clear Urine pH 7.0 Ur Specific [place] 1.007 Urine Protein Negative Urine Glucose (UA) Negative Urine Ketones Negative Urine Blood Negative Urine Nitrite Negative Urine Bilirubin Negative Urine Urobilinogen Negative Ur Leukocyte Esterase Negative 07/04/19 07/04/19 07/04/19 06:08 06:08 06:08 WBC 22.55 H RBC 4.27 Hgb 12.2 Hct 37.6 MCV 88.1 MCH 28.6 MCHC 32.4 RDW Std Deviation 48.5 H RDW Coeff of [place] 15.2 H Plt Count 330 MPV 10.9 H APTT 25.9 PTT Ratio 1.0 Sodium 140 Potassium 4.1 Chloride 108 H Carbon Dioxide 27 Anion Gap 5.0 BUN 17 Creatinine 1.13 Est Cr Clr Drug Dosing 34.2 Est GFR ( Amer) 50.3 Est GFR (Non-Af Amer) 43.4 BUN/Creatinine Ratio 15.0 Glucose 108 H Calcium 9.0 Magnesium TSH Urine Color Urine Appearance Urine pH Ur Specific [place] Urine Protein Urine Glucose (UA) Urine Ketones Urine Blood Urine Nitrite Urine Bilirubin Urine Urobilinogen Ur Leukocyte Esterase Diagnostic Findings Echocardiogram 07/01/2019 Patricia Deepa Bhagat The left ventricular cavity size is normal. The LV wall thickness is mildly increased (concentric). The left ventricular wall motion is normal. Calculated LV ejection Fraction = 60% (bi-plane method of discs). The left ventricular diastolic function is moderately abnormal (grade II). The left atrium is severely enlarged (>48 ml/m^2,). The aortic valve has three leaflets. Moderate aortic valve sclerosis is present. Borderline mild aortic valve stenosis is present. Peak instantaneous pressure gradient across the aortic valve is 18 mmHg, with mean gradient 10 mmHg. Calculated aortic valve orifice area is 1.3 cm2. There is moderate mitral annular calcification. There is focal thickening of the posterior mitral valve leaflet(s). The mitral valve chordae are focally calcified. Mild mitral regurgitation is present.
[2019-07-04] MEDS: METOPROLOL TARTRATE 50 MG TAB PO SCH ×2 (14:05→19:46)
--- NOTE | 2019-07-04 16:06 | Consultation Report ---
DATE OF CONSULTATION: 07/04/2019 PERTINENT HISTORY OF PRESENT ILLNESS: This 88-year-old female seen at the request of Dr. Shepherd for right pelvic pain. Status post fall. The patient was in her usual state of health while at home. She was reaching to her fridge to grab some milk when she got caught and she lost her balance, landing on her right side. She has a right-sided hip pain as well as a skin tear on her left calf. She then presented to the Emergency Department for evaluation and evaluated and admitted to the hospitalist service. PAST MEDICAL HISTORY: Chronic lymphocytic leukemia, chronic kidney disease stage III, coronary artery disease, diabetes mellitus type 2, dyslipidemia, pernicious anemia, paroxysmal arrhythmia, anemia of chronic disease, hypertension, GERD, migraines, degenerative arthritis, renal cyst, hearing aids, hypertension, history of falls and multiple rib fractures. PAST SURGICAL HISTORY: T and A, cardiac catheterization, knee replacement. ALLERGIES: SULFAMETHOXAZOLE, TRIMETHOPRIM, LOSARTAN, ERYTHROMYCIN. MEDICATIONS: Please note the medications in the medical record. SOCIAL HISTORY: She is , lives with her spouse. She is retired. Denies tobacco, drinks alcohol occasionally. Denies any drug use. PHYSICAL EXAMINATION: This is a pleasant 88-year-old female. Alert and oriented x3. Speech clear and fluent. Affect is appropriate. Lying supine in her hospital room bed. She is awake and alert, conversant. Exam of the pelvis demonstrates skin warm, dry and intact. Cap refill less than 2 seconds. She has tenderness to palpation over the right superior pubic ramus and the symphysis pubis. No pain with log roll or heel strike. Does have discomfort with active and passive range of motion of the right hip. However, the pain is localized to the anterior pelvis. Radiographs and CT scans reviewed demonstrating a minimally displaced superior pubic ramus fracture with extension in the symphysis pubis. Osteopenia, degenerative arthritis is noted in bilateral hips. IMPRESSION: Right minimally displaced superior pubic rami fractures, stable fracture pattern, status post fall. Osteopenia and osteoarthritis is noted. RECOMMENDATION: Nonoperative management with limited weightbearing of the right lower extremity for a period of 4-6 weeks, radiographic surveillance as an outpatient with Dr. Rodas. Walker with a toe touch weightbearing on the right for a period of approximately 6 weeks. Follow up in clinic for repeat radiographs and surveillance. Thank you for the opportunity to consult in care of this patient.
--- NOTE | 2019-07-04 17:50 | Hospitalist Progress Note ---
Date of Service July 04, 2019 Assessment & Plan (1) Fracture of superior pubic ramus: This is a 88yo F with a PMH of CLL, HTN, HLD, CAD (s/p stent), pernicious anemia, CKD III and other medical problems listed below who presents after a fall at home and was found to have acute fracture of the right superior pubic ramus with extension to the symphysis pubis. -Osteoporotic fracture -Mechanical fall at home - Hemoglobin is 12.4. UA - negative - CT head without acute intracranial abnormality. CT hip with acute fracture of the right superior pubic ramus with extension to the symphysis pubis -Discussed with orthopedics. Will keep as nonweightbearing due to extension of fracture into the symphysis pubis -PT/OT eval, discharge planning, pain control Paroxysmal A. 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 No evidence of infection. Monitor -Follows with Dr. Ruiz. Has a favorable diagnosis at this point so planning to watch and wait unless patient becomes symptomatic -Due for next appointment later June (3) CKD (chronic kidney disease), stage III: Baseline creatinine ~ 1.1. Currently creatinine mildly elevated at 1.31 on admission, now down to 1.13 this morning -Monitor with daily BMP (4) CAD (coronary artery disease): S/p stent placement (left circumflex, in 2001) -Continue isosorbide dinitrate, lopressor, aspirin, statin (5) Diabetes mellitus, type II: Glipizide was discontinued by PCP -Carb consistent diet (6) Dyslipidemia: Continue statin (7) Pernicious anemia: Continue vitamin B12 DVT Ppx: SCDs for now Code status: FULL per discussion with patient PCP: George Dispo: Admitted to [facility]. Discharge planning by CM. Subjective Elderly female lying in bed, in no acute distress, pleasant, alert and oriented x3, says that "it was stupid to fall and she should be more careful." Denies any dizziness, lightheadedness, chest pain, shortness of breath prior to fall. Currently also denies any fevers, chills, abdominal pain, nausea, vomiting. Review of Systems Review of Systems: All systems reviewed & are unremarkable except as noted in HPI & below Constitutional: no fever, no chills and no fatigue Respiratory: no cough and no dyspnea Cardiovascular: no chest pain, no palpitations and no edema Gastrointestinal: no abdominal pain, no nausea and no vomiting Physical Exam Physical Exam: General Appearance: WD/WN, elderly female lying in bed sitting up in bed, pleasant and conversant Head: normocephalic, atraumatic Eyes: EOMI, PERRL, anicteric sclerae ENT: hard of hearing, external ear and nose normal, oropharynx normal Neck: trachea midline, no thyromegaly normal visual inspection Respiratory: lungs clear to auscultation, no wheeze, rales, rhonchi. Normal insp/exp effort, no accessory muscle use Cardiovascular: regular rate and rhythm, soft syst. murmur at RUSB, normal peripheral pulses, no BLE edema. Vessels: no JVD or carotid bruit Chest: normal inspection of chest Abdomen/GI: normal bowel sounds, soft, nontender, no hepatosplenomegaly Extremities/Musculoskelatal: no cyanosis or clubbing, extremities motor strength 5/5. + L skin tear wrapped on anterior harris. TTP of R pelvis and lateral thigh but no bruising or trauma noted. Distal pulses intact. Neurologic: PERRL, EOMI, accommodation nl, no face palsy, no dysarthria CN's II-XI intact bilaterally and moves all extremities Psychiatric: A+Ox3, euthymic affect Skin: no rashes, normal color, warm/dry Results & Data Vital Signs (Past 12 Hours) Vital Signs Temp Pulse Pulse Resp BP BP Pulse Ox 07/04/19 16:00 82 07/04/19 15:00 36.9 C 82 18 155/65 H 91 07/04/19 12:20 36.6 C 66 18 157/68 H 92 07/04/19 08:00 70 07/04/19 07:17 36.7 C 75 18 165/72 H 166/74 H 92 07/04/19 06:13 156/73 H Laboratory Results 07/04/19 07/04/19 07/04/19 Range/Units 06:08 06:08 06:08 WBC 22.55 H (4.8-10.8) K/uL RBC 4.27 (4.2-5.4) M/uL Hgb 12.2 (12.0-16.0) g/dL Hct 37.6 (37-47) % MCV 88.1 (80-100) fL MCH 28.6 (25-34) pg MCHC 32.4 (32-36) g/dL RDW Std Deviation 48.5 H (36.4-46.3) fL RDW Coeff of [place] 15.2 H (11.5-14.5) % Plt Count 330 (130-400) K/uL MPV 10.9 H (7.4-10.4) fL APTT 25.9 (21.0-31.0) Seconds PTT Ratio 1.0 Sodium 140 (136-145) mmol/L Potassium 4.1 (3.5-5.1) mmol/L Chloride 108 H (98-107) mmol/L Carbon Dioxide 27 (21-32) mmol/L Anion Gap 5.0 (3-11) BUN 17 (7-18) mg/dl Creatinine 1.13 (0.6-1.2) mg/dl Est Cr Clr Drug Dosing 34.2 ml/min Est GFR ( Amer) 50.3 Est GFR (Non-Af Amer) 43.4 BUN/Creatinine Ratio 15.0 (10-20) Glucose 108 H (70-99) mg/dl Calcium 9.0 (8.5-10.1) mg/dl Magnesium (1.8-2.4) mg/dl TSH (0.300-4.500) uIu/ml 07/03/19 Range/Units 15:17 WBC (4.8-10.8) K/uL RBC (4.2-5.4) M/uL Hgb (12.0-16.0) g/dL Hct (37-47) % MCV (80-100) fL MCH (25-34) pg MCHC (32-36) g/dL RDW Std Deviation (36.4-46.3) fL RDW Coeff of [place] (11.5-14.5) % Plt Count (130-400) K/uL MPV (7.4-10.4) fL APTT (21.0-31.0) Seconds PTT Ratio Sodium (136-145) mmol/L Potassium (3.5-5.1) mmol/L Chloride (98-107) mmol/L Carbon Dioxide (21-32) mmol/L Anion Gap (3-11) BUN (7-18) mg/dl Creatinine (0.6-1.2) mg/dl Est Cr Clr Drug Dosing ml/min Est GFR ( Amer) Est GFR (Non-Af Amer) BUN/Creatinine Ratio (10-20) Glucose (70-99) mg/dl Calcium (8.5-10.1) mg/dl Magnesium 2.0 (1.8-2.4) mg/dl TSH 0.711 (0.300-4.500) uIu/ml Medications Administered Current Inpatient Medications Acetaminophen (Tylenol) 1,000 mg PO Q8H [facility] Stop: 08/02/19 18:59 Last Admin: 07/04/19 11:44 Dose: 1,000 mg Documented by: Hydrocodone Bitart/Acetaminophen ([place] 5/325) 1 tab PO Q6H PRN PRN Reason: Severe Pain Stop: 07/17/19 18:32 Last Admin: 07/04/19 02:41 Dose: 1 tab Documented by: Amlodipine Besylate (Norvasc) 2.5 mg PO DAILY [facility] Stop: 08/03/19 05:29 Last Admin: 07/04/19 06:13 Dose: 2.5 mg Documented by: Aspirin (Ecotrin Ectab) 81 mg PO MOWEFR@2100 [facility] Stop: 08/02/19 20:59 Last Admin: 07/03/19 20:17 Dose: 81 mg Documented by: Cyanocobalamin (Vitamin B-12) 500 mcg PO DAILY [facility] Stop: 08/03/19 08:59 Last Admin: 07/04/19 07:33 Dose: 500 mcg Documented by: Isosorbide Dinitrate (Isordil) 10 mg PO BID@0900,1700 [facility] Stop: 08/02/19 18:59 Last Admin: 07/04/19 17:05 Dose: 10 mg Documented by: Metoprolol Tartrate (Lopressor) 50 mg PO TID [facility] Stop: 08/03/19 13:59 Last Admin: 07/04/19 14:05 Dose: 50 mg Documented by: Multivitamins/Minerals (Multivitamin W/ Minerals Tab) 1 tab PO DAILY [facility] Stop: 08/03/19 08:59 Last Admin: 07/04/19 07:33 Dose: 1 tab Documented by: Nitroglycerin (Nitrostat) 0.4 mg SL UD PRN PRN Reason: Chest Pain Stop: 08/02/19 17:52 Polyethylene Glycol (Miralax Powder Packet) 17 gm PO DAILY PRN PRN Reason: Constipation Stop: 08/02/19 18:32 Simvastatin (Zocor) 20 mg PO HS [facility] Stop: 08/02/19 20:59 Last Admin: 07/03/19 20:18 Dose: 20 mg Documented by: Tramadol HCl (Ultram) 50 mg PO Q4H PRN PRN Reason: Moderate Pain Stop: 08/02/19 18:32 Last Admin: 07/04/19 08:12 Dose: 50 mg Documented by: Vitamin D (Vitamin D3) 400 units PO DAILY [facility] Stop: 08/03/19 08:59 Last Admin: 07/04/19 07:33 Dose: 400 units Documented by: Zolpidem Tartrate (Ambien) 5 mg PO HS PRN PRN Reason: Sleep Stop: 08/02/19 17:52 Last Admin: 07/03/19 22:17 Dose: 5 mg Documented by:
[2019-07-04] MEDS: SIMVASTATIN 20 MG TAB PO SCH (19:47)
[2019-07-05] MEDS: TRAMADOL HCL 50 MG TABLET PO PRN (00:20)
[2019-07-05] MEDS: ACETAMINOPHEN 500 MG TAB PO SCH ×3 (03:20→19:22)
[2019-07-05] MEDS ORDERED: OLANZapine 10 MG/2.1 ML SDV IM PRN (03:42)
[2019-07-05 06:13] LABS: Appearance Urine Cloudy (Clear); Bacteria Urine Automated 4+ (Negative); Bilirubin Urine Negative (Negative); Blood Urine 1+ (Negative); Color Urine Yellow; Glucose Urine UA Negative (Negative); Ketones Urine 1+ (Negative); Leukocyte Esterase Urine 3+ (Negative); Nitrite Urine Positive (Negative); Protein Urine 1+ (Negative); RBC Urine Automated 0-4 /hpf (0-4); Specific Gravity Urine 1.009 (1.000-1.030); Urobilinogen Urine Negative (Negative); WBC Urine Automated >30 /hpf (0-5)
[2019-07-05 07:01] LABS: Hematocrit (blood only) 43.3 % (37-47); Hemoglobin 14.4 g/dL (12.0-16.0); Mean Corpuscular Hgb Conc 33.3 g/dL (32-36); Mean Corpuscular Volume 87.3 fL (80-100); Mean Platelet Volume 10.6 fL (7.4-10.4); Platelet Count 361 K/uL (130-400); RDW Coefficient of Variation 15.1 % (11.5-14.5); RDW Standard Deviation 48.2 fL (36.4-46.3); Red Blood Count 4.96 M/uL (4.2-5.4); White Blood Count 21.85 K/uL (4.8-10.8)
[2019-07-05 07:34] LABS: BUN Creatinine Ratio 12.9 (10-20); Calcium 9.8 mg/dl (8.5-10.1); Creatinine Clr Calc Pharmacy 35.6 ml/min; Est GFR (African American) 53.7; Est GFR (Non-African American) 46.3; Potassium 4.2 mmol/L (3.5-5.1)
--- NOTE | 2019-07-05 07:43 | Hospitalist Progress Note ---
Date of Service July 05, 2019 Assessment & Plan (1) Fracture of superior pubic ramus: This is a 88yo F with a PMH of CLL, HTN, HLD, CAD (s/p stent), pernicious anemia, CKD III and other medical problems listed below who presents after a fall at home and was found to have acute fracture of the right superior pubic ramus with extension to the symphysis pubis. -Osteoporotic fracture -Mechanical fall at home - Hemoglobin is 12.4. UA - negative - CT head without acute intracranial abnormality. CT hip with acute fracture of the right superior pubic ramus with extension to the symphysis pubis -Orthopedic consulted - nonoperative management with limited weightbearing of the right lower extremity for a period of 4 to 6 weeks, radiographic surveillance as an outpatient with Dr. Rodas. Walker with toe-touch weightbearing on the right for approximately 6 weeks. -PT/OT eval, discharge planning, pain control Paroxysmal A. fib Transient episode on telemetry after hospitalization in the evening, no prior history of arrhythmias -Cardiology was consulted, recommend to increase metoprolol for hypertension and rhythm control -Anticoagulation not recommended to this patient, due to high risk of falling (and bleed) -Currently patient is in sinus rhythm Metabolic versus toxic encephalopathy -Patient became confused and agitated overnight, even during the day patient seems more confused per family, thinks she is on the train -UA was obtained overnight, positive for nitrites, leuk esterase, bacteria she was started on cefepime (empiric coverage) by night physician -UA yesterday, on admission was negative -Patient likely received pain medications for her pubic ramus fracture, which could affect her mental status, we will DC all the opiates, and will only provide pain medications on a as needed basis, starting with Tylenol, currently patient denies any pain and is comfortable UTI -UA positive for nitrates, esterase, bacteria -We will continue cefepime for now -We will follow urine cultures -pt does not have any fevers, chills, suprapubic tenderness (2) 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 No evidence of infection. Monitor -Follows with Dr. Ruiz. Has a favorable diagnosis at this point so planning to watch and wait unless patient becomes symptomatic -Due for next appointment later June (3) CKD (chronic kidney disease), stage III: Baseline creatinine ~ 1.1. Creatinine mildly elevated at 1.31 on admission, now down to 1.07 this morning -Monitor with daily BMP (4) CAD (coronary artery disease): S/p stent placement (left circumflex, in 2001) -Continue isosorbide dinitrate, lopressor, aspirin, statin (5) Diabetes mellitus, type II: Glipizide was discontinued by PCP -Carb consistent diet (6) Dyslipidemia: Continue statin (7) Pernicious anemia: Continue vitamin B12 DVT Ppx: SCDs for now Code status: FULL per discussion with patient PCP: George Dispo: Admitted to [facility] tele. Discharge planning by CM. Subjective Overnight patient became agitated, UA was checked and was positive for nitrites, leuk esterase, bacteria. She was started on cefepime by night physician for empiric coverage. Family ( and daughter) present at the bedside and updated. Patient still somewhat confused, family says that she thought she was on the train. Patient is awake, pleasant, answers some questions appropriately. Denies any fevers, chills, abdominal pain, chest pain, shortness of breath. Review of Systems Review of Systems: All systems reviewed & are unremarkable except as noted in HPI & below Constitutional: no fever and no chills Respiratory: no cough and no dyspnea Cardiovascular: no chest pain, no dyspnea on exertion and no palpitations Gastrointestinal: no abdominal pain, no nausea and no vomiting Physical Exam Physical Exam: General Appearance: WD/WN, elderly female lying in bed sitting up in bed, pleasant and somewhat confused Head: normocephalic, atraumatic Eyes: EOMI, PERRL, anicteric sclerae ENT: hard of hearing, external ear and nose normal, oropharynx normal Neck: trachea midline, no thyromegaly normal visual inspection Respiratory: lungs clear to auscultation, no wheeze, rales, rhonchi. Normal insp/exp effort, no accessory muscle use Cardiovascular: regular rate and rhythm, soft syst. murmur at RUSB, normal peripheral pulses, no BLE edema. Vessels: no JVD or carotid bruit Chest: normal inspection of chest Abdomen/GI: normal bowel sounds, soft, nontender, no hepatosplenomegaly Extremities/Musculoskelatal: no cyanosis or clubbing, extremities motor strength 5/5. + L skin tear wrapped on anterior harris. TTP of R pelvis and lateral thigh but no bruising or trauma noted. Distal pulses intact. Neurologic: PERRL, EOMI, accommodation nl, no face palsy, no dysarthria CN's II-XI intact bilaterally and moves all extremities Psychiatric: Patient is awake, pleasant, however does not answer questions appropriately (thinks she is on the train etc.) Skin: no rashes, normal color, warm/dry Results & Data Vital Signs (Past 12 Hours) Vital Signs Temp Pulse Pulse Resp BP Pulse Ox 07/05/19 00:00 80 07/04/19 22:53 37.0 C 80 19 179/71 H 92 Laboratory Results 07/05/19 07/05/19 07/05/19 Range/Units Unknown 06:47 06:47 WBC 21.85 H (4.8-10.8) K/uL RBC 4.96 (4.2-5.4) M/uL Hgb 14.4 (12.0-16.0) g/dL Hct 43.3 (37-47) % MCV 87.3 (80-100) fL MCH 29.0 (25-34) pg MCHC 33.3 (32-36) g/dL RDW Std Deviation 48.2 H (36.4-46.3) fL RDW Coeff of [place] 15.1 H (11.5-14.5) % Plt Count 361 (130-400) K/uL MPV 10.6 H (7.4-10.4) fL Sodium 137 (136-145) mmol/L Potassium 4.2 (3.5-5.1) mmol/L Chloride 102 (98-107) mmol/L Carbon Dioxide 26 (21-32) mmol/L Anion Gap 9.0 (3-11) BUN 14 (7-18) mg/dl Creatinine 1.07 (0.6-1.2) mg/dl Est Cr Clr Drug Dosing 35.6 ml/min Est GFR ( Amer) 53.7 Est GFR (Non-Af Amer) 46.3 BUN/Creatinine Ratio 12.9 (10-20) Glucose 156 H (70-99) mg/dl Calcium 9.8 (8.5-10.1) mg/dl Magnesium 2.0 (1.8-2.4) mg/dl Urine Color Yellow Urine Appearance Cloudy A (Clear) Urine pH 7.0 (4.5-7.5) Ur Specific [place] 1.009 (1.000-1.030) Urine Protein 1+ H (Negative) Urine Glucose (UA) Negative (Negative) Urine Ketones 1+ H (Negative) Urine Blood 1+ H (Negative) Urine Nitrite Positive A (Negative) Urine Bilirubin Negative (Negative) Urine Urobilinogen Negative (Negative) Ur Leukocyte Esterase 3+ H (Negative) Urine WBC (Auto) >30 H (0-5) /hpf Urine RBC (Auto) 0-4 (0-4) /hpf U Hyaline Cast (Auto) 1-5 (0-5) /lpf U Epithel Cells (Auto) 5-10 H (0-5) /lpf Urine Bacteria (Auto) 4+ H (Negative) Urine Yeast Not Reportable Medications Administered Current Inpatient Medications Acetaminophen (Tylenol) 1,000 mg PO Q8H [facility] Stop: 08/02/19 18:59 Last Admin: 07/05/19 03:20 Dose: Not Given Documented by: Hydrocodone Bitart/Acetaminophen ([place] 5/325) 1 tab PO Q6H PRN PRN Reason: Severe Pain Stop: 07/17/19 18:32 Last Admin: 07/04/19 19:47 Dose: 1 tab Documented by: Amlodipine Besylate (Norvasc) 2.5 mg PO DAILY [facility] Stop: 08/03/19 05:29 Last Admin: 07/04/19 06:13 Dose: 2.5 mg Documented by: Aspirin (Ecotrin Ectab) 81 mg PO MOWEFR@2100 [facility] Stop: 08/02/19 20:59 Last Admin: 07/03/19 20:17 Dose: 81 mg Documented by: Cyanocobalamin (Vitamin B-12) 500 mcg PO DAILY [facility] Stop: 08/03/19 08:59 Last Admin: 07/04/19 07:33 Dose: 500 mcg Documented by: Isosorbide Dinitrate (Isordil) 10 mg PO BID@0900,1700 [facility] Stop: 08/02/19 18:59 Last Admin: 07/04/19 17:05 Dose: 10 mg Documented by: Metoprolol Tartrate (Lopressor) 50 mg PO TID [facility] Stop: 08/03/19 13:59 Last Admin: 07/04/19 19:46 Dose: 50 mg Documented by: Multivitamins/Minerals (Multivitamin W/ Minerals Tab) 1 tab PO DAILY [facility] Stop: 08/03/19 08:59 Last Admin: 07/04/19 07:33 Dose: 1 tab Documented by: Nitroglycerin (Nitrostat) 0.4 mg SL UD PRN PRN Reason: Chest Pain Stop: 08/02/19 17:52 Olanzapine (Zyprexa) 2.5 mg IM Q4H PRN PRN Reason: Anxiety/Agitation Stop: 08/04/19 03:41 Last Admin: 07/05/19 03:56 Dose: 2.5 mg Documented by: Polyethylene Glycol (Miralax Powder Packet) 17 gm PO DAILY PRN PRN Reason: Constipation Stop: 08/02/19 18:32 Simvastatin (Zocor) 20 mg PO HS [facility] Stop: 08/02/19 20:59 Last Admin: 07/04/19 19:47 Dose: 20 mg Documented by: Tramadol HCl (Ultram) 50 mg PO Q4H PRN PRN Reason: Moderate Pain Stop: 08/02/19 18:32 Last Admin: 07/05/19 00:20 Dose: 50 mg Documented by: Vitamin D (Vitamin D3) 400 units PO DAILY [facility] Stop: 08/03/19 08:59 Last Admin: 07/04/19 07:33 Dose: 400 units Documented by: Zolpidem Tartrate (Ambien) 5 mg PO HS PRN PRN Reason: Sleep Stop: 08/02/19 17:52 Last Admin: 07/03/19 22:17 Dose: 5 mg Documented by:
[2019-07-05] MEDS: AMLODIPINE BESYLATE 5 MG TAB PO SCH (07:51)
[2019-07-05] MEDS: METOPROLOL TARTRATE 50 MG TAB PO SCH ×2 (07:51→21:00)
[2019-07-05] MEDS: ISOSORBIDE DINITRATE 10 MG TAB PO SCH ×2 (07:51→16:48)
--- NOTE | 2019-07-05 07:51 | Communication Note ---
Date of Service: July 05, 2019 Patient noted to be agitated by staff around 3:45 AM. Urine noted to be cloudy as per criminal legal assistant. UA nitrite positive AP Delirium secondary to complicated UTI (hx ceftriaxone resistant E. coli from 2008 outpatient urine CS) no sepsis Follow urine cultures, IV Cefepime Zyprexa as needed for agitation We relay to AM provider.
[2019-07-05] MEDS: CHOLECALCIFEROL (VITAMIN D) 400 UNITS TABLET PO SCH (07:53)
[2019-07-05] MEDS: CEROVITE ADV FORMULA TAB PO SCH (07:53)
[2019-07-05] MEDS: CYANOCOBALAMIN 500 MCG TABLET (VITAMIN B-12) PO SCH (07:53)
[2019-07-05 08:04] LABS: Basophils # (auto) 0.05 K/uL (0-0.2); Basophils % (auto) 0.2 %; Eosinophils # (auto) 0.21 K/uL (0-0.5); Immature Granulocytes % (auto) 0.5 %; Lymphocytes # (auto) 7.25 K/uL (1.2-3.4); Lymphocytes % (auto) 33.2 %; Monocytes # (auto) 1.88 K/uL (0.11-0.59); Monocytes % (auto) 8.6 %; Neutrophils # (auto) 12.36 K/uL (1.4-6.5); Neutrophils % (auto) 56.5 %; Smudge Cells Present
[2019-07-05] MEDS: CEFEPIME 2,000 MG in SYRINGE 7.5 ML IV SCH (08:33)
[2019-07-05] MEDS ORDERED: CEFEPIME CONSULT ACTIVE PRN (09:00)
--- NOTE | 2019-07-05 13:31 | Cardiology Progress Note ---
Date of Service July 05, 2019 Assessment & Plan (1) Paroxysmal atrial fibrillation: Patient had transient episode of paroxysmal atrial fibrillation after hospitalization. Findings incidentally noted on monitor with spontaneous resolve asymptomatic from patient description. She has no prior history of atrial arrhythmias Echocardiogram demonstrates atrial enlargement which would lead us at high risk for recurrence Discussed findings in detail with the patient and daughter today Plan: With no further recurrence of atrial arrhythmias would continue metoprolol at slightly reduced dosing 50 mg p.o. twice daily Would not initiate anticoagulation at this time given mental status changes, head contusion and recent history of multiple falls (2) CAD (coronary artery disease): No recent angina or cardiac complaints (3) HTN (hypertension): As above we will continue usual outpatient medications with increase in beta-dudley therapy (4) Fracture of superior pubic ramus: Per records initial plan appears to be conservative management however orthopedic evaluation pending. Patient has no contraindications to surgical intervention if indicated (5) CLL (chronic lymphocytic leukemia): Subjective Patient is seen and examined, chart, medications, telemetry reviewed. Patient currently pleasant but noted agitation earlier this morning as well as intermittent mild confusion. Daughter is at bedside and patient responding appropriately to me regarding recent events and visits. She denies any chest pains or discomfort. She did participate in physical therapy to low-level activity today Telemetry revealed no further atrial arrhythmias. She was begun on antibiotic therapy last evening for urinary tract infection Physical Exam Constitutional: WD/WN, vitals as above + obese Eyes: PERRL, conjunctivae normal, anicteric sclerae ENMT: external ear and nose normal, oropharynx normal Neck: trachea midline, no thyromegaly Respiratory: normal respiratory effort, lungs clear to auscultation Cardiovascular: Rate/Rhythm: regular rate and regular rhythm Heart Sounds: normal S1, normal S2 and + murmur (Grade 1-2 or 6 systolic, no diastolic); no gallop Palpation: normal PMI Vessels: normal carotid upstroke and radial pulses present; no JVD and no carotid bruit Extremities: no edema Gastrointestinal (Abdomen): normal bowel sounds, soft, nontender, no hepatosplenomegaly Musculoskeletal: Extremities: + chronic stasis changes Skin: no rashes, warm and dry Neurologic: PERRL, EOMI, accommodation nl, no face palsy, no dysarthria Psychiatric: A+Ox3, euthymic affect Results & Data Vital Signs (Past 12 Hours) Vital Signs Temp Pulse Pulse Resp BP BP Pulse Ox 07/05/19 11:00 36.5 C 70 18 94/58 L 94 07/05/19 08:00 117 H 07/05/19 07:00 36.9 C 111 H 18 112/68 93 Laboratory Results Laboratory Results - last 24 hr 07/05/19 07/05/19 07/05/19 06:47 06:47 Unknown WBC 21.85 H RBC 4.96 Hgb 14.4 Hct 43.3 MCV 87.3 MCH 29.0 MCHC 33.3 RDW Std Deviation 48.2 H RDW Coeff of [place] 15.1 H Plt Count 361 MPV 10.6 H Immature Gran % (Auto) 0.5 Neut % (Auto) 56.5 Lymph % (Auto) 33.2 [place] % (Auto) 8.6 Eos % (Auto) 1.0 Baso % (Auto) 0.2 Immature Gran # (Auto) 0.10 H Neut # (Auto) 12.36 H Lymph # (Auto) 7.25 H [place] # (Auto) 1.88 H Eos # (Auto) 0.21 Baso # (Auto) 0.05 Smudge Cells Present Sodium 137 Potassium 4.2 Chloride 102 Carbon Dioxide 26 Anion Gap 9.0 BUN 14 Creatinine 1.07 Est Cr Clr Drug Dosing 35.6 Est GFR ( Amer) 53.7 Est GFR (Non-Af Amer) 46.3 BUN/Creatinine Ratio 12.9 Glucose 156 H Calcium 9.8 Magnesium 2.0 Urine Color Yellow Urine Appearance Cloudy A Urine pH 7.0 Ur Specific [place] 1.009 Urine Protein 1+ H Urine Glucose (UA) Negative Urine Ketones 1+ H Urine Blood 1+ H Urine Nitrite Positive A Urine Bilirubin Negative Urine Urobilinogen Negative Ur Leukocyte Esterase 3+ H Urine WBC (Auto) >30 H Urine RBC (Auto) 0-4 U Hyaline Cast (Auto) 1-5 U Epithel Cells (Auto) 5-10 H Urine Bacteria (Auto) 4+ H Urine Yeast Not Reportable
[2019-07-05] MEDS: SIMVASTATIN 20 MG TAB PO SCH (21:00)
[2019-07-05] MEDS ORDERED: MAGNESIUM SULFATE / D5W 1 GM/100 ML BAG IV ONE (22:30)
[2019-07-06] MEDS: ACETAMINOPHEN 500 MG TAB PO SCH ×3 (02:03→18:01)
[2019-07-06 06:09] LABS: Mean Corpuscular Hgb Conc 32.9 g/dL (32-36); Mean Platelet Volume 11.1 fL (7.4-10.4); Platelet Count 312 K/uL (130-400)
[2019-07-06 06:49] LABS: Calcium 8.8 mg/dl (8.5-10.1); Creatinine Clr Calc Pharmacy 24.3 ml/min; Est GFR (African American) 33.5; Est GFR (Non-African American) 28.9
[2019-07-06 07:06] LABS: ALC (manual) 14.24 K/uL (1.2-3.4); ANC (manual) 9.66 K/uL (1.4-6.5); Eosinophils # (manual) 1.27 K/uL (0-0.5); Hematocrit (blood only) 39.8 % (37-47); Hemoglobin 13.1 g/dL (12.0-16.0); Lymphocytes # (manual) 14.24 K/uL (1.2-3.4); Mean Corpuscular Hemoglobin 28.7 pg (25-34); Mean Corpuscular Volume 87.3 fL (80-100); Metamyelocytes # (manual) 0.25 K/uL (0-0); Neutrophils # (manual) 9.66 K/uL (1.4-6.5); RDW Coefficient of Variation 15.3 % (11.5-14.5); Red Blood Count 4.56 M/uL (4.2-5.4); White Blood Count 25.43 K/uL (4.8-10.8)
[2019-07-06] MEDS: CHOLECALCIFEROL (VITAMIN D) 400 UNITS TABLET PO SCH (07:43)
[2019-07-06] MEDS: METOPROLOL TARTRATE 50 MG TAB PO SCH ×2 (07:43→20:25)
[2019-07-06] MEDS: AMLODIPINE BESYLATE 5 MG TAB PO SCH (07:43)
[2019-07-06] MEDS: CEFEPIME 2,000 MG in SYRINGE 7.5 ML IV SCH (07:43)
[2019-07-06] MEDS: CEROVITE ADV FORMULA TAB PO SCH (07:43)
[2019-07-06] MEDS: CYANOCOBALAMIN 500 MCG TABLET (VITAMIN B-12) PO SCH (07:43)
[2019-07-06] MEDS: ISOSORBIDE DINITRATE 10 MG TAB PO SCH ×2 (07:44→16:18)
--- NOTE | 2019-07-06 10:42 | Cardiology Progress Note ---
Date of Service July 06, 2019 Assessment & Plan (1) Paroxysmal atrial fibrillation: Patient had transient episode of paroxysmal atrial fibrillation after hospitalization. Findings incidentally noted on monitor with spontaneous resolve asymptomatic from patient description. She has no prior history of atrial arrhythmias Echocardiogram demonstrates atrial enlargement which would lead us at high risk for recurrence Discussed findings in detail with the patient and daughter today Plan: With no further recurrence of atrial arrhythmias would continue metoprolol at slightly reduced dosing 50 mg p.o. twice daily Would not initiate anticoagulation at this time given mental status changes, head contusion and recent history of multiple falls (2) CAD (coronary artery disease): No recent angina or cardiac complaints (3) HTN (hypertension): As above we will continue usual outpatient medications with increase in beta-dudley therapy (4) Fracture of superior pubic ramus: Patient is participating in physical therapy Patient with multiple mechanical falls recently. As per multiple past visits have discussed Ambien and its usage. This does not appear to be specifically associated with patient's falls however not recommended in this age group with fall history She is concerned regarding sleep issues with prior alternative medications causing adverse effect (5) CLL (chronic lymphocytic leukemia): Subjective Patient is seen and examined, chart, medications, telemetry reviewed. Patient currently awake sitting at bedside. Just participated in physical therapy which he found tiring. No further agitation. She denies any chest pains or discomfort. Telemetry revealed no further atrial arrhythmias. Physical Exam Constitutional: WD/WN, vitals as above + obese Eyes: PERRL, conjunctivae normal, anicteric sclerae ENMT: external ear and nose normal, oropharynx normal Neck: trachea midline, no thyromegaly Respiratory: normal respiratory effort, lungs clear to auscultation Cardiovascular: Rate/Rhythm: regular rate and regular rhythm Heart Sounds: normal S1, normal S2 and + murmur (Grade 1-2 or 6 systolic, no diastolic); no gallop Palpation: normal PMI Vessels: normal carotid upstroke and radial pulses present; no JVD and no carotid bruit Extremities: no edema Gastrointestinal (Abdomen): normal bowel sounds, soft, nontender, no hepatosplenomegaly Musculoskeletal: Extremities: + chronic stasis changes Skin: no rashes, warm and dry Neurologic: PERRL, EOMI, accommodation nl, no face palsy, no dysarthria Psychiatric: A+Ox3, euthymic affect Results & Data Vital Signs (Past 12 Hours) Vital Signs Temp Pulse Pulse Resp BP Pulse Ox 07/06/19 08:00 75 07/06/19 07:40 36.7 C 78 18 130/73 94
--- NOTE | 2019-07-06 17:14 | Hospitalist Progress Note ---
Date of Service July 06, 2019 Assessment & Plan (1) Fracture of superior pubic ramus: This is a 88yo F with a PMH of CLL, HTN, HLD, CAD (s/p stent), pernicious anemia, CKD III and other medical problems listed below who presents after a fall at home and was found to have acute fracture of the right superior pubic ramus with extension to the symphysis pubis. -Likely osteoporotic fracture, d/t ground level mechanical fall at home -CT hip with acute fracture of the right superior pubic ramus with extension to the symphysis pubis -Orthopedics consulted - nonoperative management with limited weightbearing of the right lower extremity for a period of 4 to 6 weeks, radiographic surveillance as an outpatient with Dr. Rodas. Walker with toe-touch weightbearing on the right for approximately 6 weeks. -PT/OT eval, discharge planning, pain control Paroxysmal A. fib Transient episode on telemetry after hospitalization in the evening, no prior history of arrhythmias -Cardiology was consulted, recommend to adjust metoprolol dose to 50 mg bid for hypertension and rhythm control -Anticoagulation not recommended to this patient, due to high risk of falling (and bleed) -Currently patient is in sinus rhythm Metabolic versus toxic encephalopathy -Patient became confused and agitated during the night (after her admission), even during the day patient seemed more confused per family,now resolved, pt's mental status back to baseline per family -UA was obtained at that time, positive for nitrites, leuk esterase, bacteria she was started on cefepime (empiric coverage) by night physician -UA on admission was negative -Patient likely received pain medications for her pubic ramus fracture, which could affect her mental status, we stopped all the opiates, and will only provide pain medications on a as needed basis, starting with Tylenol, currently patient denies any pain and is comfortable UTI -UA positive for nitrates, esterase, bacteria -We will continue cefepime for now -We will follow urine cultures -pt does not have any fevers, chills, suprapubic tenderness (2) 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 No evidence of infection. Monitor -Follows with Dr. Ruiz. Has a favorable diagnosis at this point so planning to watch and wait unless patient becomes symptomatic -Due for next appointment later June (3) CKD (chronic kidney disease), stage III: BOGDAN on CKD Baseline creatinine ~ 1.1. Creatinine now elevated at 1.58 Will provide IV hydration Monitor with daily BMP will try to avoid any nephrotoxic agents, NSAIDs, contrast etc. Will encourage PO inatke (4) CAD (coronary artery disease): S/p stent placement (left circumflex, in 2001) -Continue isosorbide dinitrate, lopressor, aspirin, statin (5) Diabetes mellitus, type II: Glipizide was discontinued by PCP -Carb consistent diet (6) Dyslipidemia: Continue statin (7) Pernicious anemia: Continue vitamin B12 DVT Ppx: SCDs for now Code status: FULL per discussion with patient PCP: George Dispo: Admitted to med tele. Discharge planning by CM. Subjective No acute events overnight. Pt feels well, she is alert and oriented x3. Family present at the bedside. Pt denies any fever, chills, chest pain, shortness of breath, palpitations, abd. pain, nausea or vomiting. Review of Systems Review of Systems: All systems reviewed & are unremarkable except as noted in HPI & below Constitutional: no fever and no chills Respiratory: no cough, no chest congestion and no dyspnea Cardiovascular: no chest pain, no dyspnea on exertion, no palpitations and no edema Gastrointestinal: no abdominal pain, no nausea and no vomiting Physical Exam Physical Exam: General Appearance: WD/WN, elderly female lying in bed in NAD Head: normocephalic, atraumatic Eyes: EOMI, PERRL, anicteric sclerae ENT: hard of hearing, external ear and nose normal, oropharynx normal Neck: trachea midline, no thyromegaly normal visual inspection Respiratory: lungs clear to auscultation, no wheeze, rales, rhonchi. Normal insp/exp effort, no accessory muscle use Cardiovascular: regular rate and rhythm, soft syst. murmur at RUSB, normal peripheral pulses, no BLE edema. Vessels: no JVD or carotid bruit Chest: normal inspection of chest Abdomen/GI: normal bowel sounds, soft, nontender, no hepatosplenomegaly Extremities/MSK: no cyanosis or clubbing, extremities motor strength 5/5. + L skin tear wrapped on anterior harris. TTP of R pelvis and lateral thigh but no bruising or trauma noted. Distal pulses intact. Neurologic: PERRL, EOMI, accommodation nl, no face palsy, no dysarthria CN's II-XI intact bilaterally and moves all extremities Psychiatric: Patient is awake, alert and orientedx3, answers questions appropriately (per family, mental status back to baseline) Results & Data Vital Signs (Past 12 Hours) Vital Signs Temp Pulse Pulse Resp BP Pulse Ox 07/06/19 15:57 84 18 134/78 95 07/06/19 08:00 75 07/06/19 07:40 36.7 C 78 18 130/73 94 Laboratory Results 07/06/19 07/06/19 Range/Units 05:53 05:53 WBC 25.43 H (4.8-10.8) K/uL RBC 4.56 (4.2-5.4) M/uL Hgb 13.1 (12.0-16.0) g/dL Hct 39.8 (37-47) % MCV 87.3 (80-100) fL MCH 28.7 (25-34) pg MCHC 32.9 (32-36) g/dL RDW Std Deviation 49.0 H (36.4-46.3) fL RDW Coeff of [place] 15.3 H (11.5-14.5) % Plt Count 312 (130-400) K/uL MPV 11.1 H (7.4-10.4) fL Neutrophils % (Manual) 38.0 % Lymphocytes % (Manual) 56.0 % Eosinophils % (Manual) 5.0 % Metamyelocytes % (Man) 1.0 % Neutrophils # (Manual) 9.66 H (1.4-6.5) K/uL Total Absolute Neuts 9.66 H (1.4-6.5) K/uL Lymphocytes # (Manual) 14.24 H (1.2-3.4) K/uL Total Abs Lymphocytes 14.24 H (1.2-3.4) K/uL Eosinophils # (Manual) 1.27 H (0-0.5) K/uL Metamyelocytes # (Man) 0.25 H (0-0) K/uL Sodium 134 L (136-145) mmol/L Potassium 4.0 (3.5-5.1) mmol/L Chloride 102 (98-107) mmol/L Carbon Dioxide 23 (21-32) mmol/L Anion Gap 9.0 (3-11) BUN 27 H D (7-18) mg/dl Creatinine 1.58 H D (0.6-1.2) mg/dl Est Cr Clr Drug Dosing 24.3 ml/min Est GFR ( Amer) 33.5 Est GFR (Non-Af Amer) 28.9 BUN/Creatinine Ratio 17.0 (10-20) Glucose 182 H (70-99) mg/dl Calcium 8.8 (8.5-10.1) mg/dl Medications Administered Current Inpatient Medications Acetaminophen (Tylenol) 1,000 mg PO Q8H [facility] Stop: 08/02/19 18:59 Last Admin: 07/06/19 11:31 Dose: 1,000 mg Documented by: Amlodipine Besylate (Norvasc) 2.5 mg PO DAILY [facility] Stop: 08/03/19 05:29 Last Admin: 07/06/19 07:43 Dose: 2.5 mg Documented by: Aspirin (Ecotrin Ectab) 81 mg PO MOWEFR@2100 [facility] Stop: 08/02/19 20:59 Last Admin: 07/03/19 20:17 Dose: 81 mg Documented by: Cyanocobalamin (Vitamin B-12) 500 mcg PO DAILY [facility] Stop: 08/03/19 08:59 Last Admin: 07/06/19 07:43 Dose: 500 mcg Documented by: Cefepime HCl 2,000 mg/ Syringe 20 mls @ 1 mls/min IV Q24H [facility]; Protocol Stop: 07/15/19 07:59 Last Admin: 07/06/19 07:43 Dose: 1 mls/min Documented by: Isosorbide Dinitrate (Isordil) 10 mg PO BID@0900,1700 [facility] Stop: 08/02/19 18:59 Last Admin: 07/06/19 16:18 Dose: 10 mg Documented by: Metoprolol Tartrate (Lopressor) 50 mg PO BID [facility] Stop: 08/04/19 20:59 Last Admin: 07/06/19 07:43 Dose: 50 mg Documented by: Miscellaneous Information (Cefepime Consult Active) 1 ea N/A UD PRN PRN Reason: Consult Stop: 08/04/19 08:59 Multivitamins/Minerals (Multivitamin W/ Minerals Tab) 1 tab PO DAILY [facility] Stop: 08/03/19 08:59 Last Admin: 07/06/19 07:43 Dose: 1 tab Documented by: Nitroglycerin (Nitrostat) 0.4 mg SL UD PRN PRN Reason: Chest Pain Stop: 08/02/19 17:52 Olanzapine (Zyprexa) 2.5 mg IM Q4H PRN PRN Reason: Anxiety/Agitation Stop: 08/04/19 03:41 Last Admin: 07/05/19 03:56 Dose: 2.5 mg Documented by: Polyethylene Glycol (Miralax Powder Packet) 17 gm PO DAILY PRN PRN Reason: Constipation Stop: 08/02/19 18:32 Simvastatin (Zocor) 20 mg PO HS [facility] Stop: 08/02/19 20:59 Last Admin: 07/05/19 21:00 Dose: 20 mg Documented by: Vitamin D (Vitamin D3) 400 units PO DAILY [facility] Stop: 08/03/19 08:59 Last Admin: 07/06/19 07:43 Dose: 400 units Documented by:
[2019-07-06] MEDS: SODIUM CHLORIDE 0.9% 1000ML 1,000 ML IV SCH (18:00)
[2019-07-06] MEDS: ASPIRIN 81 MG ECTAB PO SCH (20:24)
[2019-07-06] MEDS: SIMVASTATIN 20 MG TAB PO SCH (20:24)
[2019-07-07] MEDS: SODIUM CHLORIDE 0.9% 1000ML 1,000 ML IV SCH ×2 (02:01→09:52)
[2019-07-07] MEDS: ACETAMINOPHEN 500 MG TAB PO SCH ×3 (02:02→18:42)
[2019-07-07] MEDS ORDERED: LORazepam 0.5 MG TAB PO STA (05:40)
[2019-07-07 07:25] LABS: Mean Corpuscular Hgb Conc 32.7 g/dL (32-36); Mean Platelet Volume 10.8 fL (7.4-10.4); Platelet Count 325 K/uL (130-400)
[2019-07-07] MEDS: CEFEPIME 2,000 MG in SYRINGE 7.5 ML IV SCH (07:45)
[2019-07-07] MEDS: ISOSORBIDE DINITRATE 10 MG TAB PO SCH ×2 (07:49→17:01)
[2019-07-07] MEDS: AMLODIPINE BESYLATE 5 MG TAB PO SCH (07:50)
[2019-07-07] MEDS: CHOLECALCIFEROL (VITAMIN D) 400 UNITS TABLET PO SCH (07:50)
[2019-07-07] MEDS: CEROVITE ADV FORMULA TAB PO SCH (07:50)
[2019-07-07] MEDS: METOPROLOL TARTRATE 50 MG TAB PO SCH ×2 (07:50→20:57)
[2019-07-07] MEDS: CYANOCOBALAMIN 500 MCG TABLET (VITAMIN B-12) PO SCH (07:50)
[2019-07-07 07:58] LABS: BUN Creatinine Ratio 23.2 (10-20); Calcium 8.7 mg/dl (8.5-10.1); Creatinine Clr Calc Pharmacy 25.8 ml/min; Est GFR (African American) 46.3; Est GFR (Non-African American) 39.9
[2019-07-07 08:11] LABS: ANC (manual) 10.19 K/uL (1.4-6.5); Basophils % (manual) 0.9 %; Eosinophils # (manual) 0.93 K/uL (0-0.5); Eosinophils % (manual) 4.3 %; Hematocrit (blood only) 39.5 % (37-47); Hemoglobin 12.9 g/dL (12.0-16.0); Lymphocytes % (manual) 46.1 %; Mean Corpuscular Hemoglobin 28.7 pg (25-34); Mean Corpuscular Volume 87.8 fL (80-100); Monocytes # (manual) 0.37 K/uL (0.11-0.59); Monocytes % (manual) 1.7 %; Neutrophils # (manual) 10.19 K/uL (1.4-6.5); RDW Coefficient of Variation 15.2 % (11.5-14.5); RDW Standard Deviation 48.7 fL (36.4-46.3); Smudge Cells Present; White Blood Count 21.69 K/uL (4.8-10.8)
--- NOTE | 2019-07-07 11:09 | Hospitalist Progress Note ---
Date of Service July 07, 2019 Assessment & Plan (1) Fracture of superior pubic ramus: This is a 88yo F with a PMH of CLL, HTN, HLD, CAD (s/p stent), pernicious anemia, CKD III and other medical problems listed below who presents after a fall at home and was found to have acute fracture of the right superior pubic ramus with extension to the symphysis pubis. -Likely osteoporotic fracture, d/t ground level mechanical fall at home -CT hip with acute fracture of the right superior pubic ramus with extension to the symphysis pubis -Orthopedic consulted - nonoperative management with limited weightbearing of the right lower extremity for a period of 4 to 6 weeks, radiographic surveillance as an outpatient with Dr. Rodas. Walker with toe-touch weightbearing on the right for approximately 6 weeks. -PT/OT eval, discharge planning, pain control Paroxysmal A. fib Transient episode on telemetry after hospitalization in the evening, no prior history of arrhythmias -Cardiology was consulted, recommend to adjust metoprolol to 50 mg BID for hypertension and rhythm control -Anticoagulation not recommended to this patient, due to high risk of falling (and bleed) -Currently patient is in sinus rhythm Metabolic versus toxic encephalopathy -Patient became confused and agitated overnight again, and is still confused today -UA was obtained previously, positive for nitrites, leuk esterase, bacteria she was started on cefepime (empiric coverage) by night physician - U cltx positive for pansensitive E.coli -UA on admission was negative -Patient likely received pain medications for her pubic ramus fracture, which could affect her mental status, we will DC all the opiates, and will only provide pain medications on a as needed basis, starting with Tylenol, currently patient denies any pain and is comfortable UTI -UA positive for nitrates, esterase, bacteria -Urine culture - positive for pansensitive E.coli -We will continue cefepime, last dose today (07/07) for uncomplicated UTI -pt does not have any fevers, chills, suprapubic tenderness (2) 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 No evidence of infection. Monitor -Follows with Dr. Ruiz. Has a favorable diagnosis at this point so planning to watch and wait unless patient becomes symptomatic -Due for next appointment later June (3) CKD (chronic kidney disease), stage III: BOGDAN on CKD Baseline creatinine ~ 1.1. Creatinine elevated at 1.58 yesterday (07/06) - likely secondary to UTI, Abx, poor oral intake - IVF provided, now much improved, Cr down to 1.2 - however Na increased by several mEq, will d/c IVF and will encourage PO intake - will re-check Na level this afternoon - Update: Na down to 138 and Cr down to 1.1 - Monitor with daily BMP -avoid nephrotoxic agents such as NSAIDs, contrast etc. (4) CAD (coronary artery disease): S/p stent placement (left circumflex, in 2001) -Continue isosorbide dinitrate, lopressor, aspirin, statin (5) Diabetes mellitus, type II: Glipizide was discontinued by PCP -Carb consistent diet (6) Dyslipidemia: Continue statin (7) Pernicious anemia: Continue vitamin B12 DVT Ppx: SCDs for now Code status: FULL per discussion with patient PCP: Mainali Dispo: Admitted to [facility]. Discharge planning by JOHN. Subjective Patient became confused overnight again. Currently she is lying in bed, comfortable, in no acute distress, but unable to answer all my questions appropriately. Her is at the bedside. Patient is denying any fevers, chills, chest pain, shortness of breath, abdominal pain, nausea or vomiting. Review of Systems Review of Systems: All systems reviewed & are unremarkable except as noted in HPI & below Constitutional: no fever and no chills Respiratory: no cough, no dyspnea and no pain on inspiration Cardiovascular: no chest pain, no dyspnea on exertion, no palpitations and no edema Gastrointestinal: no abdominal pain, no nausea and no vomiting Physical Exam Physical Exam: General Appearance: WD/WN, elderly female sitting up in chair, pleasant and somewhat confused Head: normocephalic, atraumatic Eyes: EOMI, PERRL, anicteric sclerae ENT: hard of hearing, external ear and nose normal, oropharynx normal Neck: trachea midline, no thyromegaly normal visual inspection Respiratory: lungs clear to auscultation, no wheeze, rales, rhonchi. Normal insp/exp effort, no accessory muscle use Cardiovascular: regular rate and rhythm, soft syst. murmur at RUSB, normal peripheral pulses, no BLE edema. Vessels: no JVD or carotid bruit Chest: normal inspection of chest Abdomen/GI: normal bowel sounds, soft, nontender, no hepatosplenomegaly Extremities/MSK: no cyanosis or clubbing, extremities motor strength 5/5. + L skin tear wrapped on anterior harris. TTP of R pelvis and lateral thigh but no bruising or trauma noted. Distal pulses intact. Neurologic: PERRL, EOMI, accommodation nl, no face palsy, no dysarthria CN's II-XI intact bilaterally and moves all extremities Psychiatric: Patient is alert but not oriented, does not answer some questions appropriately Results & Data Vital Signs (Past 12 Hours) Vital Signs Temp Pulse Pulse Resp BP BP Pulse Ox 07/07/19 08:00 85 07/07/19 07:39 36.4 C L 91 H 18 132/66 94 07/07/19 04:00 36.6 C 86 20 160/67 H 96 07/07/19 00:00 72 07/06/19 23:38 36.7 C 81 20 135/70 92 Laboratory Results 07/07/19 07/07/19 Range/Units 07:13 07:13 WBC 21.69 H (4.8-10.8) K/uL RBC 4.50 (4.2-5.4) M/uL Hgb 12.9 (12.0-16.0) g/dL Hct 39.5 (37-47) % MCV 87.8 (80-100) fL MCH 28.7 (25-34) pg MCHC 32.7 (32-36) g/dL RDW Std Deviation 48.7 H (36.4-46.3) fL RDW Coeff of [place] 15.2 H (11.5-14.5) % Plt Count 325 (130-400) K/uL MPV 10.8 H (7.4-10.4) fL Neutrophils % (Manual) 47.0 % Lymphocytes % (Manual) 46.1 % Monocytes % (Manual) 1.7 % Eosinophils % (Manual) 4.3 % Basophils % (Manual) 0.9 % Neutrophils # (Manual) 10.19 H (1.4-6.5) K/uL Total Absolute Neuts 10.19 H (1.4-6.5) K/uL Lymphocytes # (Manual) 10.00 H (1.2-3.4) K/uL Total Abs Lymphocytes 10.00 H (1.2-3.4) K/uL Monocytes # (Manual) 0.37 (0.11-0.59) K/uL Eosinophils # (Manual) 0.93 H (0-0.5) K/uL Basophils # (Manual) 0.20 (0-0.2) K/uL Smudge Cells Present Sodium 141 D (136-145) mmol/L Potassium 4.0 (3.5-5.1) mmol/L Chloride 110 H (98-107) mmol/L Carbon Dioxide 19 L (21-32) mmol/L Anion Gap 11.0 (3-11) BUN 28 H (7-18) mg/dl Creatinine 1.21 H D (0.6-1.2) mg/dl Est Cr Clr Drug Dosing 25.8 ml/min Est GFR ( Amer) 46.3 Est GFR (Non-Af Amer) 39.9 BUN/Creatinine Ratio 23.2 H (10-20) Glucose 132 H (70-99) mg/dl Calcium 8.7 (8.5-10.1) mg/dl Medications Administered Current Inpatient Medications Acetaminophen (Tylenol) 1,000 mg PO Q8H [facility] Stop: 08/02/19 18:59 Last Admin: 07/07/19 02:02 Dose: 1,000 mg Documented by: Amlodipine Besylate (Norvasc) 2.5 mg PO DAILY [facility] Stop: 08/03/19 05:29 Last Admin: 07/07/19 07:50 Dose: 2.5 mg Documented by: Aspirin (Ecotrin Ectab) 81 mg PO MOWEFR@2100 [facility] Stop: 08/02/19 20:59 Last Admin: 07/06/19 20:24 Dose: 81 mg Documented by: Cyanocobalamin (Vitamin B-12) 500 mcg PO DAILY [facility] Stop: 08/03/19 08:59 Last Admin: 07/07/19 07:50 Dose: 500 mcg Documented by: Isosorbide Dinitrate (Isordil) 10 mg PO BID@0900,1700 [facility] Stop: 08/02/19 18:59 Last Admin: 07/07/19 07:49 Dose: 10 mg Documented by: Metoprolol Tartrate (Lopressor) 50 mg PO BID [facility] Stop: 08/04/19 20:59 Last Admin: 11/12/19 07:50 Dose: 50 mg Documented by: Multivitamins/Minerals (Multivitamin W/ Minerals Tab) 1 tab PO DAILY [facility] Stop: 08/03/19 08:59 Last Admin: 07/07/19 07:50 Dose: 1 tab Documented by: Nitroglycerin (Nitrostat) 0.4 mg SL UD PRN PRN Reason: Chest Pain Stop: 08/02/19 17:52 Olanzapine (Zyprexa) 2.5 mg IM Q4H PRN PRN Reason: Anxiety/Agitation Stop: 08/04/19 03:41 Last Admin: 07/05/19 03:56 Dose: 2.5 mg Documented by: Polyethylene Glycol (Miralax Powder Packet) 17 gm PO DAILY PRN PRN Reason: Constipation Stop: 08/02/19 18:32 Simvastatin (Zocor) 20 mg PO HS [facility] Stop: 08/02/19 20:59 Last Admin: 07/06/19 20:24 Dose: 20 mg Documented by: Vitamin D (Vitamin D3) 400 units PO DAILY [facility] Stop: 08/03/19 08:59 Last Admin: 07/07/19 07:50 Dose: 400 units Documented by:
[2019-07-07 14:18] LABS: BUN Creatinine Ratio 24.7 (10-20); Calcium 8.8 mg/dl (8.5-10.1); Creatinine Clr Calc Pharmacy 28.2 ml/min; Est GFR (African American) 51.3; Est GFR (Non-African American) 44.3; Potassium 4.2 mmol/L (3.5-5.1)
[2019-07-07] MEDS: SIMVASTATIN 20 MG TAB PO SCH (20:57)
[2019-07-07] MEDS ORDERED: HALOPERIDOL LACTATE 5 MG/ML 1 ML VIAL IM STA (23:27)
[2019-07-08] MEDS ORDERED: MoRPHine SULFATE 4 MG/ML 1 ML CARP\\VIAL IV STA (00:26)
[2019-07-08] MEDS: ACETAMINOPHEN 500 MG TAB PO SCH (02:05)
[2019-07-08] MEDS ORDERED: HALOPERIDOL LACTATE 5 MG/ML 1 ML VIAL IM STA (02:10)
[2019-07-08] MEDS ORDERED: HALOPERIDOL LACTATE 5 MG/ML 1 ML VIAL IM PRN (02:15)
[2019-07-08] MEDS ORDERED: ACETAMINOPHEN 325 MG TAB PO PRN (07:05)
[2019-07-08] MEDS ORDERED: CEFEPIME 1,000 MG in SYRINGE 0 ML IV SCH (08:00)
[2019-07-08] MEDS: AMLODIPINE BESYLATE 5 MG TAB PO SCH (08:01)
[2019-07-08] MEDS: ISOSORBIDE DINITRATE 10 MG TAB PO SCH ×2 (08:01→17:08)
[2019-07-08] MEDS: METOPROLOL TARTRATE 50 MG TAB PO SCH ×2 (08:09→20:06)
[2019-07-08 08:54] LABS: Calcium 9.4 mg/dl (8.5-10.1); Creatinine Clr Calc Pharmacy 36.4 ml/min; Est GFR (African American) 54.3; Est GFR (Non-African American) 46.8; Potassium 4.1 mmol/L (3.5-5.1)
[2019-07-08] MEDS: CHOLECALCIFEROL (VITAMIN D) 400 UNITS TABLET PO SCH (09:14)
[2019-07-08] MEDS: CYANOCOBALAMIN 500 MCG TABLET (VITAMIN B-12) PO SCH (09:14)
[2019-07-08] MEDS: CEROVITE ADV FORMULA TAB PO SCH (09:14)
[2019-07-08] MEDS ORDERED: CEFEPIME 2,000 MG in SYRINGE 7.5 ML IV SCH (14:00)
[2019-07-08] MEDS ORDERED: cefTRIAXone SODIUM 2,000 MG in DEXTROSE 5% 50 ML IV SCH (14:45)
--- NOTE | 2019-07-08 15:32 | Hospitalist Progress Note ---
Date of Service July 08, 2019 Assessment & Plan (1) Fracture of superior pubic ramus: This is a 88yo F with a PMH of CLL, HTN, HLD, CAD (s/p stent), pernicious anemia, CKD III and other medical problems listed below who presents after a fall at home and was found to have acute fracture of the right superior pubic ramus with extension to the symphysis pubis. -Likely osteoporotic fracture, d/t ground level mechanical fall at home -CT hip with acute fracture of the right superior pubic ramus with extension to the symphysis pubis -Orthopedic consulted: [facility] Dr. Rodas 07/04/19 recommended: nonoperative management with limited weightbearing of the right lower extremity for a period of 4 to 6 weeks, radiographic surveillance as an outpatient with Dr. Rodas. Walker with toe-touch weightbearing on the right for approximately 6 weeks. -Patient should schedule appointment with [facility] with Dr. Rodas or his colleagues (Address: [address] [place] [address] ) -Patient to go to [facility] for physical rehabilitation after hospital discharge Toxic encephalopathy versus Metabolic Encephalopathy versus delirium from sundowning -patient's mental status has improved after episodes of confusion -appears to be some correlation with night time -during this hospital stay, patient has been given antibiotic in case confusion caused by urinary tract infection; opiates minimized -will try to avoid olanzapine or haldol at night (2) UTI (urinary tract infection): -UA positive for nitrates, esterase, bacteria -Urine culture - positive for pansensitive E.coli -patient was given 3 days of cefepime with last dose on 07/07/19. 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 -WBC counts has been above 20,000 during hospital stay -Patient has outpatient oncology appointment 07/13/2019 2:45 PM Provider Aman Ruiz MD Department Hematology/Oncology [facility] (5) Pernicious anemia: -Continue vitamin B12 (6) CAD (coronary artery disease): -S/p stent placement (left circumflex, in 2001) aspirin, statin (7) Paroxysmal atrial fibrillation: -Transient episode on telemetry during hospital stay, no prior history of arrhythmias -Cardiology was consulted, recommend to adjust metoprolol to 50 mg BID for blood pressure and rate control -Anticoagulation not recommended to this patient, due to high risk of falling (and bleed) -Currently patient is in sinus rhythm (8) HTN (hypertension): -Continue isosorbide dinitrate, lopressor, -low dose amlodipine 2.5 mg daily (9) Dyslipidemia: -Continue statin (10) Diabetes mellitus, type II: -Glipizide was discontinued by PCP -Carb consistent diet DVT Ppx: SCDs for now Code status: FULL per discussion with patient PCP: -Patient has outpatient primary care appointment 07/14/2019 1:00 PM Provider Dena Vazquez MD Department General Internal Medicine [facility] Subjective Patient seen and examined with her at bedside. Patient does not appear to be in acute pain. She reports limited activities with therapy. She reports she is aware that she should not place excessive weight bearing on the right lower extremity. She denies dysuria. She understands she has been getting IV antibiotics for urinary tract bacteria. Discussed with patient and her of concerns for delirium at night time. Review of Systems Review of Systems: All systems reviewed & are unremarkable except as noted in HPI & below Physical Exam Constitutional: comfortable Eyes: PERRL, conjunctivae normal, anicteric sclerae EOM intact bilaterally ENMT: external ear and nose normal, oropharynx normal Neck: normal visual inspection Respiratory: normal respiratory effort, lungs clear to auscultation Cardiovascular: RRR, no murmur, no edema Gastrointestinal (Abdomen): normal bowel sounds, soft, nontender, no hepatosplenomegaly Musculoskeletal: no tenderness on palpation of right hip Neurologic: PERRL, EOMI, accommodation nl, no face palsy, no dysarthria Psychiatric: Orientation: alert and cooperative Results & Data Vital Signs (Past 12 Hours) Vital Signs Temp Pulse Pulse Resp BP BP Pulse Ox 07/08/19 15:06 88 07/08/19 14:57 36.9 C 85 16 129/65 93 07/08/19 11:18 36.7 C 69 18 144/62 H 95 07/08/19 09:13 66 127/69 07/08/19 07:17 36.7 C 90 18 173/66 H 95 07/08/19 07:00 69
[2019-07-08 18:34] LABS: Appearance Urine Clear (Clear); Bacteria Urine Automated Negative (Negative); Bilirubin Urine Negative (Negative); Blood Urine Trace (Negative); Color Urine Yellow; Epithelial Cell Urine Auto >30 /lpf (0-5); Glucose Urine UA Negative (Negative); Ketones Urine 1+ (Negative); Leukocyte Esterase Urine Negative (Negative); Nitrite Urine Negative (Negative); Protein Urine 1+ (Negative); Specific Gravity Urine 1.017 (1.000-1.030); Urobilinogen Urine Negative (Negative)
[2019-07-08] MEDS: ASPIRIN 81 MG ECTAB PO SCH (20:07)
[2019-07-08] MEDS: SIMVASTATIN 20 MG TAB PO SCH (20:07)
[2019-07-09] MEDS: ISOSORBIDE DINITRATE 10 MG TAB PO SCH (08:11)
[2019-07-09] MEDS: CEROVITE ADV FORMULA TAB PO SCH (08:11)
[2019-07-09] MEDS: METOPROLOL TARTRATE 50 MG TAB PO SCH (08:12)
[2019-07-09] MEDS: CYANOCOBALAMIN 500 MCG TABLET (VITAMIN B-12) PO SCH (08:12)
[2019-07-09] MEDS: CHOLECALCIFEROL (VITAMIN D) 400 UNITS TABLET PO SCH (08:12)
[2019-07-09] MEDS ORDERED: AMLODIPINE BESYLATE 5 MG TAB PO SCH (09:00)
--- NOTE | 2019-07-09 09:42 | Hospitalist Progress Note ---
Date of Service July 09, 2019 Assessment & Plan (1) Fracture of superior pubic ramus: This is a 88yo F with a PMH of CLL, HTN, HLD, CAD (s/p stent), pernicious anemia, CKD III and other medical problems listed below who presents after a fall at home and was found to have acute fracture of the right superior pubic ramus with extension to the symphysis pubis. -Likely osteoporotic fracture, d/t ground level mechanical fall at home -CT hip with acute fracture of the right superior pubic ramus with extension to the symphysis pubis -Orthopedic consulted: [facility] Dr. Rodas 07/04/19 recommended: nonoperative management with limited weightbearing of the right lower extremity for a period of 4 to 6 weeks, radiographic surveillance as an outpatient with Dr. Rodas. Walker with toe-touch weightbearing on the right for approximately 6 weeks. -Patient should schedule appointment with [facility] with Dr. Rodas or his colleagues (Address: [address] [place] [address] ) -Patient to go to [facility] for physical rehabilitation after hospital discharge -Patient may take acetaminophen 325 mg every 6 hours as needed for pain or if fever. advise on discharge to avoid opioids to avoid sedation of confusion Toxic encephalopathy versus Metabolic Encephalopathy versus delirium from sundowning -patient's mental status has improved after episodes of confusion -appears to be some correlation with night time -during this hospital stay, patient has completed antibiotic course in case confusion caused by urinary tract infection; opiates were minimized and wer stopped (2) UTI (urinary tract infection): -UA positive for nitrates, esterase, bacteria -Urine culture - positive for pansensitive E.coli -patient was given 3 days of cefepime with last dose on 07/07/19. 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 -WBC counts has been above 20,000 during hospital stay -Patient has outpatient oncology appointment 07/13/2019 2:45 PM Provider Aman Ruiz MD Department Hematology/Oncology [facility] (5) Pernicious anemia: -Continue vitamin B12 (6) CAD (coronary artery disease): -S/p stent placement (left circumflex, in 2001) aspirin, statin (7) Paroxysmal atrial fibrillation: -Transient episode on telemetry during hospital stay, no prior history of arrhythmias -Cardiology was consulted, recommend to adjust metoprolol to 50 mg BID for blood pressure and rate control on this hospital stay -Anticoagulation not recommended to this patient, due to high risk of falling (and bleed) -Currently patient is in sinus rhythm (8) HTN (hypertension): -Continue isosorbide dinitrate, lopressor, -low dose amlodipine 2.5 mg daily (9) Dyslipidemia: -Continue statin (10) Diabetes mellitus, type II: -Glipizide was discontinued by PCP -Carb consistent diet DVT Ppx: SCDs for now Code status: FULL per discussion with patient PCP: -Patient has outpatient primary care appointment 07/14/2019 1:00 PM Provider Dena Vazquez MD Department General Internal Medicine [facility] Discharge Diagnosis acute fracture of the right superior pubic ramus with extension to the symphysis pubis; chronic kidney disease stage III, urinary tract infection, CLL (chronic lymphocytic leukemia), Toxic encephalopathy versus Metabolic Encephalopathy versus delirium from sundowning, paroxysmal atrial fibrillation Subjective Patient did not have any overnight events. No agitation or confusion reported. No distress. No acute pain. only when questioned, she would say that she has mild right hip discomfort. breathing on room air. no shortness of breath. no headache. no vomiting Review of Systems Review of Systems: All systems reviewed & are unremarkable except as noted in HPI & below Physical Exam Constitutional: comfortable Eyes: PERRL, conjunctivae normal, anicteric sclerae EOM intact bilaterally ENMT: external ear and nose normal, oropharynx normal Neck: normal visual inspection Respiratory: normal respiratory effort, lungs clear to auscultation Cardiovascular: RRR, no murmur, no edema Gastrointestinal (Abdomen): normal bowel sounds, soft, nontender, no hepatos plenomegaly Musculoskeletal: Hip: + hip abnormal to inpsection (no acute hip tendernes to palpation despite known fracture) Neurologic: PERRL, EOMI, accommodation nl, no face palsy, no dysarthria Psychiatric: Orientation: alert and cooperative Results & Data Vital Signs (Past 12 Hours) Vital Signs Temp Pulse Pulse Resp BP Pulse Ox 07/09/19 07:24 36.6 C 97 H 18 150/72 H 97 07/09/19 04:00 36.3 C L 96 H 18 162/81 H 94 07/09/19 00:24 81 07/08/19 23:56 36.9 C 78 18 137/71 96
--- NOTE | 2019-07-09 09:47 | Discharge Summary ---
Date of Service July 09, 2019 Admission HPI Per Admitting Provider This is a 88yo F with a PMH of CLL, HTN, HLD, CAD (s/p stent), pernicious anemia, CKD III and other medical problems listed below who presents after a fall at home. Patient states she was reaching into her fridge to grab the milk jug when her shoe got caught and she lost her balance, landing on her right side. Patient endorses hitting her head but denies any preceding lightheadedness or dizziness. No loss of consciousness. Did have immediate right-sided hip pain as well as a skin tear on left calf. Was brought to ED for further evaluation. Patient found to be hemodynamically stable. Hemoglobin is 12.4. Urinalysis without abnormality. CT head without acute intracranial abnormality. CT hip with acute fracture of the right superior pubic ramus with extension to the symphysis pubis. No evidence of proximal femoral fracture. No evidence of dislocation. 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 Admission Exam Per Admitting Provider General Appearance: WD/WN, vitals as above, NAD, elderly woman sitting up in bed, pleasant, conversing easily Head: normocephalic, atraumatic Eyes: normal inspection, PERRL, conjunctivae normal, anicteric sclerae ENT: hard of hearing, external ear and nose normal, oropharynx normal Neck: trachea midline, no thyromegaly normal visual inspection Respiratory: lungs clear to auscultation, no wheeze, rales, rhonchi. Normal insp/exp effort, no accessory muscle use Cardiovascular: regular rate and rhythm, systolic ejection murmur, normal peripheral pulses, no BLE edema. Vessels: no JVD or carotid bruit Chest: normal inspection of chest Abdomen/GI: normal bowel sounds, soft, nontender, no hepatosplenomegaly Extremities/Musculoskelatal: no cyanosis or clubbing, extremities motor strength 5/5. + L skin tear wrapped on anterior harris. TTP of R pelvis and lateral thigh but no bruising or trauma noted. Distal pulses intact. Neurologic: PERRL, EOMI, accommodation nl, no face palsy, no dysarthria CN's II-XI intact bilaterally and moves all extremities Psychiatric: A+Ox3, euthymic affect Skin: no rashes, normal color, warm/dry Principal Diagnosis acute fracture of the right superior pubic ramus with extension to the symphysis pubis; chronic kidney disease stage III, urinary tract infection, CLL (chronic lymphocytic leukemia), Toxic encephalopathy versus Metabolic Encephalopathy versus delirium from sundowning, paroxysmal atrial fibrillation Discharge Exam Constitutional comfortable Eyes PERRL, conjunctivae normal, anicteric sclerae EOM intact bilaterally ENMT external ear and nose normal, oropharynx normal Neck normal visual inspection Respiratory normal respiratory effort, lungs clear to auscultation Cardiovascular RRR, no murmur, no edema Gastrointestinal (Abdomen) normal bowel sounds, soft, nontender, no hepatosplenomegaly Musculoskeletal Hip: + hip abnormal to inpsection (no acute hip tendernes to palpation despite known fracture) Neurologic PERRL, EOMI, accommodation nl, no face palsy, no dysarthria Psychiatric Orientation: alert and cooperative Discharge Data Allergies Allergy/AdvReac Type Severity Reaction Status Date / Time sulfamethoxazole Allergy Intermediate Rash Verified 08/15/18 21:51 [From Bactrim] trimethoprim [From Bactrim] Allergy Intermediate Rash Verified 08/15/18 21:51 losartan Allergy Mild Fatigue Verified 08/15/18 21:51 erythromycin base AdvReac Mild NAUSEA Verified 08/15/18 21:51 Consultations 07/03/19 16:48 ED Decision to Admit Stat 07/03/19 18:33 Consult Case Management - Discharge Planning Routine 07/03/19 22:58 Consult Cardiology Routine 07/04/19 08:00 Consult Orthopedic Surgery Routine Ordered Studies 07/03/19 14:48 CT head/brain wo con Stat 07/03/19 15:40 CT hip RT wo con Stat Hospital Course (1) Fracture of superior pubic ramus: This is a 88yo F with a PMH of CLL, HTN, HLD, CAD (s/p stent), pernicious anemia, CKD III and other medical problems listed below who presents after a fall at home and was found to have acute fracture of the right superior pubic ramus with extension to the symphysis pubis. -Likely osteoporotic fracture, d/t ground level mechanical fall at home -CT hip with acute fracture of the right superior pubic ramus with extension to the symphysis pubis -Orthopedic consulted: [facility] Dr. Rodas 07/04/19 recommended: nonoperative management with limited weightbearing of the right lower extremity for a period of 4 to 6 weeks, radiographic surveillance as an outpatient with Dr. Rodas. Walker with toe-touch weightbearing on the right for approximately 6 weeks. -Patient should schedule appointment with [facility] with Dr. Rodas or his colleagues (Address: [address] [place] [id number] ) -Patient to go to [facility] for physical rehabilitation after hospital discharge -Patient may take acetaminophen 325 mg every 6 hours as needed for pain or if fever. advise on discharge to avoid opioids to avoid sedation of confusion Toxic encephalopathy versus Metabolic Encephalopathy versus delirium from [place] ndowning -patient's mental status has improved after episodes of confusion -appears to be some correlation with night time -during this hospital stay, patient has completed antibiotic course in case c onfusion caused by urinary tract infection; opiates were minimized and wer stopped (2) UTI (urinary tract infection): -UA positive for nitrates, esterase, bacteria -Urine culture - positive for pansensitive E.coli -patient was given 3 days of cefepime with last dose on 07/07/19. 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 -WBC counts has been above 20,000 during hospital stay -Patient has outpatient oncology appointment 07/13/2019 2:45 PM Provider Aman Ruiz MD Department Hematology/Oncology [facility] (5) Pernicious anemia: -Continue vitamin B12 (6) CAD (coronary artery disease): -S/p stent placement (left circumflex, in 2001) aspirin, statin (7) Paroxysmal atrial fibrillation: -Transient episode on telemetry during hospital stay, no prior history of arrhythmias -Cardiology was consulted, recommend to adjust metoprolol to 50 mg BID for blood pressure and rate control on this hospital stay -Anticoagulation not recommended to this patient, due to high risk of falling (and bleed) -Currently patient is in sinus rhythm (8) HTN (hypertension): -Continue isosorbide dinitrate, lopressor, -low dose amlodipine 2.5 mg daily (9) Dyslipidemia: -Continue statin (10) Diabetes mellitus, type II: -Glipizide was discontinued by PCP -Carb consistent diet DVT Ppx: SCDs for now Code status: FULL per discussion with patient PCP: -Patient has outpatient primary care appointment 07/14/2019 1:00 PM Provider Dena Vazquez MD Department General Internal Medicine [facility] Discharge Diagnosis acute fracture of the right superior pubic ramus with extension to the symphysis pubis; chronic kidney disease stage III, urinary tract infection, CLL (chronic lymphocytic leukemia), Toxic encephalopathy versus Metabolic Encephalopathy versus delirium from sundowning, paroxysmal atrial fibrillation Total Time Total Time Spent Total Time Spent (In Minutes): 40 minutes Total Time Includes: Examination of the Patient, Discharge Planning, Medication Reconciliation and Communication With Other Providers Discharge Plan Discharge Items Patient Disposition: Transfer Inpatient Rehab Fac Reason For Visit: ACUTE SUPERIOR PUBIC RAMUS FX WITH AMBULATORY DYSF Discharge Diagnosis: acute fracture of the right superior pubic ramus with extension to the symphysis pubis; chronic kidney disease stage III, urinary tract infection, CLL (chronic lymphocytic leukemia), Toxic encephalopathy versus Metabolic Encephalopathy versus delirium from sundowning, paroxysmal atrial fibrillation Condition on Discharge: Good Activity: Per Instructions section Weightbearing: Right toe touch Non-emergency contact: Primary Care Provider and Surgeon Call non-emergency contact if: you have any medication questions Follow-up/Referrals: Dena Vazquez MD [Primary Care Provider] - Diet: Regular Addtl Attending Provider Instructions: -Orthopedic consulted: [facility] Dr. Rodas 07/04/19 recommended: nonoperative management with limited weightbearing of the right lower extremity for a period of 4 to 6 weeks, radiographic surveillance as an outpatient with Dr Suzanne Rodas. Walker with toe-touch weightbearing on the right for approximately 6 weeks. -Patient should schedule appointment with [facility] with Dr. Rodas or his colleagues (Address: [address] [place] [id number] ) -Patient to go to [facility] for physical rehabilitation after hospital discharge -Patient may take acetaminophen 325 mg every 6 hours as needed for pain or if fever. advise on discharge to avoid opioids to avoid sedation of confusion -Patient has outpatient oncology appointment 07/13/2019 2:45 PM Provider Aman Ruiz MD Department Hematology/Oncology [facility] -Patient has outpatient primary care appointment 07/14/2019 1:00 PM Provider Dena Vazquez MD Department General Internal Medicine [facility] Patient is discharge on metoprolol 50 mg BID for heart rate control and blood pressure control Pending Studies at Discharge: No Stand-Alone Forms: My [facility] Skilled Items Patient informed of condition?: Yes DNR: No Discharge Level of Care: Acute rehab Communicable Disease: No Discharge Prognosis: Stable Lines: None Urinary Catheter: No Medications and DC Order Prescriptions: New acetaminophen 325 mg tablet 325 mg PO Q6H PRN (Reason: fever or pain) 5 Days Qty: 20 RF: 0 metoprolol tartrate 50 mg Tablet 50 mg PO BID 30 Days Qty: 60 RF: 0 Continued isosorbide dinitrate 10 mg tablet 10 mg PO BID RF: 0 simvastatin 20 mg tablet 20 mg PO HS RF: 0 nitroglycerin 0.4 mg tablet, sublingual 0.4 mg Sublingual DIRECTED PRN (Reason: Chest Pain) RF: 0 aspirin 81 mg Tablet,Delayed Release (Dr/Ec) 81 mg PO MOWEFR@2100 RF: 0 cyanocobalamin (vitamin B-12) 500 mcg Tablet, Sublingual 500 mcg SUBLINGUAL DAILY RF: 0 amlodipine 5 mg tablet 2.5 mg PO DAILY RF: 0 cholecalciferol (vitamin D3) [Vitamin D3] 400 unit Capsule 400 unit PO DAILY RF: 0 PreserVision AREDS [id number] Tablet 1 tab PO BID RF: 0 Discontinued zolpidem 5 mg tablet 5 mg PO HS PRN (Reason: Sleep) RF: 0 metoprolol tartrate 25 mg tablet 25 mg PO BID RF: 0 valacyclovir [Valtrex] 1 gram Tablet 1,000 mg PO UD RF: 0 Discharge Orders: Discharge Order (Routine); Ordered 07/09/19 Ordered By: Andriy Dueñas Admission Data Admit Date/Time: 07/03/19 17:13 Attending Provider: Andriy Dueñas Admit Provider: Israel Shepherd Primary Care Provider: Dena Vazquez Other Providers: Sandro Rodas Robin A. ; Oziel Franco ; [facility] ; Toni Wilkinson at [place] Other Interventions: Discharge Summary Assessment (RN) Last Done: 07/09/19 09:41
[2019-07-09] MEDS ORDERED: cefTRIAXone SODIUM 2,000 MG in DEXTROSE 5% 50 ML IV ONE (12:00)
== END 2019-07-09 17:52 | DRG 542 ==
LOC: ED 14:07 → SUATTDRO 17:13 → 2N 17:13